=== PATIENT | male | born 1980 | race Caucasian/White ===

== ENCOUNTER 2017-08-17 02:51 | Inpatient (IN) | payer MEDICAID ==
--- NOTE | 2017-08-17 03:31 | ED PDOC ---
HPI: Psych/Substance Abuse Time Seen by Provider: 08/17/17 03:05 Chief Complaint (Nursing): Psychiatric Evaluation Chief Complaint (Provider): crisis evaluation History Per: Patient Additional Complaint(s): 36 y/o male presents stating he was sent here by Dr. Diaz. Patient with flat affect. Denies suicidal/homicidal ideations, acute physical complaints. Of note, patient provided prescription with Dr. Diaz's hand writing stating to have patient evaluated for possible inpatient admission for diagnosis of paranoid schizophrenia. Past Medical History Reviewed: Historical Data, Nursing Documentation, Vital Signs Vital Signs: Last Vital Signs Temp 98.0 F 08/17/17 02:57 Pulse 96 H 08/17/17 02:57 Resp 18 08/17/17 02:57 BP 166/94 H 08/17/17 02:57 Pulse Ox 99 08/17/17 02:57 - Medical History PMH: No Chronic Diseases - Family History Family History: States: No Known Family Hx - Home Medications Home Medications: Ambulatory Orders Medication Instructions Recorded No Known Home Med 08/17/17 - Allergies Allergies/Adverse Reactions: Allergies Allergy/AdvReac Type Severity Reaction Status Date / Time No Known Allergies Allergy Verified 08/17/17 02:57 Review of Systems ROS Statement: Except As Marked, All Systems Reviewed And Found Negative Physical Exam - Reviewed Nursing Documentation Reviewed: Yes Vital Signs Reviewed: Yes - Physical Exam Appears: Positive for: Well, Non-toxic, No Acute Distress Head Exam: Positive for: ATRAUMATIC, NORMAL INSPECTION, NORMOCEPHALIC Skin: Positive for: Normal Color Eye Exam: Positive for: Normal appearance ENT: Positive for: Normal ENT Inspection Cardiovascular/Chest: Positive for: Regular Rate, Rhythm Respiratory: Positive for: Normal Breath Sounds Gastrointestinal/Abdominal: Positive for: Normal Exam Back: Positive for: Normal Inspection Extremity: Positive for: Normal ROM Neurologic/Psych: Positive for: Alert, Oriented (x3), Mood/Affect (flat/guarded) - Laboratory Results Result Diagrams: 08/17/17 04:20 08/17/17 04:20 - ECG ECG: Positive for: Viewed By Me (reviewed by ED attending) ECG Rhythm: Positive for: Sinus Rhythm O2 Sat by Pulse Oximetry: 99 - Radiology X-Ray Interpretation: No Acute Disease, Fracture - Progress ED Course And Treament: crisis eval Patient evaluated by heat treat worker; to be admitted as per Dr. Bentley labs, ekg, chest xray ordered Medical Decision Making Medical Decision Making: Patient medically stable for psych admission Disposition - Clinical Impression Clinical Impression: Schizophrenia - Patient ED Disposition Is Patient to be Admitted: Yes - Disposition Disposition Time: 05:09 Condition: STABLE Forms: yeppt (Hungarian)
[2017-08-17 04:42] LABS: BASO # 0.1 K/uL (0.0-0.2); BASO % 0.7 % (0.0-2.0); EOS # 0.2 K/uL (0.0-0.7); EOS % 2.7 % (0.0-4.0); HEMOGLOBIN 15.3 g/dL (12.0-18.0); LYMPH % 23.6 % (20.0-40.0); MEAN CELL VOLUME 89.3 fl (80.0-94.0); MEAN CORPUSCULAR HEMOGLOBIN 31.1 pg (27.0-31.0); MEAN CORPUSCULAR HGB CONC 34.9 g/dL (33.0-37.0); MEAN PLATELET VOLUME 8.5 fl (7.2-11.7); MONO # 0.9 K/uL (0.0-0.8); MONO % 10.3 % (0.0-10.0); NEUT # 5.2 K/uL (1.8-7.0); NEUT % 62.7 % (50.0-75.0); RBC 4.91 Mil/uL (4.40-5.90); RED CELL DISTRIBUTION WIDTH 12.8 % (11.5-14.5); WHITE BLOOD COUNT 8.3 K/uL (4.8-10.8)
[2017-08-17 04:45] LABS: SQUAMOUS EPITHIAL < 1 /hpf (0-5); URINE BACTERIA RARE (<OCC); URINE BILIRUBIN NEGATIVE (NEGATIVE); URINE BLOOD NEGATIVE (NEGATIVE); URINE CLARITY SLIGHTY-CLOUDY (Clear); URINE COLOR YELLOW (YELLOW); URINE GLUCOSE (UA) NEG (Normal); URINE LEUKOCYTE ESTERASE NEG Leu/uL (Negative); URINE PROTEIN NEGATIVE (NEGATIVE)
[2017-08-17 04:46] LABS: ALB/GLOB RATIO 1.3 (1.0-2.1); ALBUMIN 4.3 g/dL (3.5-5.0); ALT/SGPT 79 U/L (21-72); AST/SGOT 75 U/L (17-59); BLOOD UREA NITROGEN 13 mg/dl (9-20); CALCIUM 9.4 mg/dL (8.4-10.2); GFR AFRICAN-AMERICAN > 60; GFR NON-AFRICAN AMERICAN > 60
[2017-08-17 05:00] LABS: BARBITURATES, UR NEGATIVE (NEGATIVE); BENZODIAZEPINES, UR NEGATIVE (NEGATIVE); OPIATES, UR NEGATIVE (NEGATIVE); PHENCYCLIDINE, UR NEGATIVE (NEGATIVE)
--- NOTE | 2017-08-17 08:21 | RAD ---
HISTORY: admit COMPARISON: No prior. TECHNIQUE: Chest PA and lateral FINDINGS: LUNGS: No active pulmonary disease. PLEURA: No significant pleural effusion identified. No pneumothorax apparent. CARDIOVASCULAR: Normal. OSSEOUS STRUCTURES: No significant abnormalities. VISUALIZED UPPER ABDOMEN: Normal. OTHER FINDINGS: None. IMPRESSION: No acute cardiopulmonary disease appreciated.
[2017-08-17 08:56] VITALS: O2SAT 100
[2017-08-17] MEDS ORDERED: DiphenhydrAMINE 50 mg/ml Inj IM PRN (09:40)
[2017-08-17] MEDS ORDERED: Alum-Mag Hydrox-Simethicone Susp (30 mL) PO PRN (09:40)
[2017-08-17] MEDS ORDERED: Magnesium Hydroxide Susp 30 ml UD PO PRN (09:40)
[2017-08-17] MEDS ORDERED: Risperidone M tab 1 MG PO STA (10:37)
--- NOTE | 2017-08-17 11:01 | PCM.PSYCH ---
Initial Psychiatric Evaluation - Initial Psychiatric Evaluation Type of Admission: Voluntary Legal Status: Capacity Chief Complaint (in patient's own words): I am here for contact lenses Patient's Reaction to Hospitalization: pt requested help History of Present Illness and Precipitating Events: pt is a 36 ys old male with unclear previous psychiatric history, referred to ER by private psychiatrist Dr Padilla, pt reported he started seeing Dr Zhang about ten years ago, only to chech his general health, pt reported he had multiple hospitalizations at [facility] but would not elaborate on the reason pt unkempt and disheveled, speech under productive, continues to report all he needs is eye care, presenting with thought blocking, internally preoccupied , , poor eye contact appears responding to internal stimuli, no reported changes in sleep or appetite denied suicidal or homicidal ideation, denied command hallucinations . no reported substance use, urine toxicology is negative Current Medications: Active Medications Generic Name Dose Route Start Last Admin Trade Name Freq PRN Reason Stop Dose Admin Acetaminophen 650 mg 08/17/17 09:40 Tylenol 325mg Tab PO Q4 PRN Pain, moderate (4-7) Al Hydrox/Mg Hydrox/Simethicone 30 ml 08/17/17 09:40 Maalox Plus 30 Ml PO Q4 PRN Dyspepsia Diphenhydramine HCl 50 mg 08/17/17 09:40 Benadryl IM Q6 PRN Extrapyramidal S/S Unable PO Diphenhydramine HCl 50 mg 08/17/17 09:40 Benadryl PO Q6 PRN Extrapyramidal Symptoms Haloperidol 5 mg 08/17/17 09:40 Haldol PO Q4 PRN Agitation Haloperidol Lactate 5 mg 08/17/17 09:40 Haldol IM Q4 PRN Agitation, Unable to Take PO Lorazepam 2 mg 08/17/17 09:40 Ativan IM Q4 PRN Anxiety/Agitation,Unable PO Lorazepam 2 mg 08/17/17 09:40 Ativan PO Q4 PRN Anxiety/Agitation Magnesium Hydroxide 30 ml 08/17/17 09:40 Milk Of Magnesia PO HS PRN Constipation Risperidone 1 mg 08/17/17 10:37 Risperdal M-Tab PO 08/17/17 10:38 STAT STA Risperidone 1 mg 08/18/17 09:00 Risperdal M-Tab PO DAILY FERMIN Risperidone 1 mg 08/17/17 22:00 Risperdal M-Tab PO HS FERMIN Trazodone HCl 100 mg 08/17/17 22:00 Desyrel PO HS FERMIN Past Psychiatric History - Past Psychiatric History Explanation of prior treatment: pt reported multiple hospitalizations at [facility] indicated he has not been compliant with any medications recently History of ETOH/Drug Use: pt denied History of Family Illness: pt not giving information Pertinent Medical Hx (Current Medical&Sleep Prob, Allergies): Allergies Allergy/AdvReac Type Severity Reaction Status Date / Time No Known Allergies Allergy Verified 08/17/17 02:57 No Known Home Med 08/17/17 Mental Status Examination - Personal Presentation Personal Presentation: Looks older than stated age Additional comments: unkempt, disheveled, hypervigalant, starring - Affect Affect: Constricted - Motor Activity Motor Activity: Psychomotor Retardation - Reliability in Providing Information Reliability in Providing Information: Poor, due to alteration in thoughts - Speech Speech: Disorganized Additional comments: under productive - Mood Mood: Anxious - Formal Thought Process Formal Thought Process: Paranoia, Loosening of associations Additional comments: pt appears internally preoccupied , with thought blocking, appears responding to internal stimuli, denied command hallucinations - Obsessions/Compulsions Obsessions: No Compulsions: No - Cognitive Functions Orientation: Person Sensorium: Alert Judgement: Imparied, as evidence by: Poor judgement, Imparied, as evidence by: Lack of insight into illness - Strength & Assets Inventory Strength & Assets Inventory: Life experience - Limitations Limitations: Living alone DSM 5 DX - DSM 5 DSM 5 Diagnosis: schizophrenia disorganized type - Recommended/Plan of Treatment Treatment Recommendations and Plan of Treatment: start risperidone 1mg bid and uptitrate gradualy trazodone 100mg qhs group and supportive therapy
--- NOTE | 2017-08-17 13:45 | CARD ---
APPROVED REPORT EKG Measurement Heart [id number] <Conclusion> Normal sinus rhythm Cannot rule out Anterior infarct, age undetermined Check chest lead placement Abnormal ECG
--- NOTE | 2017-08-17 14:19 | PCM.BM ---
Addendum entered and electronically signed by Erika Castillo MSW 08/25/17 11: 10: Treatment Plan Review - Problem Altered Thought Process Time Initiated: 14:17 - Discharge / Continuing Care Discharge to:: Home Behavioral Health Services: Outpatient therapy Health Needs: Medications/Rx (Patient attended tx team this morning to discuss progress on 3NP and tx goals. Pt. evasive and uncooperative when asked for additional collateral regarding outpatient mental health services, financial resources and family/social supports. Pt. continues to respond to questions with one word responses. Pt asked about how frequently he meets with outpatient psychiatrist and medication dosages prescribed prior to d/c and responded with You would have to talk to him and I do not know. Pt. more easily irritable than upon admission, expressing frustration over being asked questions by staff. Pt. withdrawn, isolative and internally preoccupied. Pt. suspicious on approach. Insight into precursors to hospitalization, illness and need for tx is poor. Coping skills/judgment impaired. Pt. continues to refuse to sign consent for family or cheondoism supports but provided verbal consent to contact [facility]. Pt. reports hx of OPS with [facility] (Candi S?). Pt refused recommendation to have referral sent to [facility], stating You keep asking me that. Its not necessary.) Original Note: <Elsy Rock - Last Filed: 08/17/17 14:17> Treatment Plan Problems - Problems identified on initial assessmt Altered Thought Process Date Initiated: 08/17/17 Time Initiated: 14:17 Assessment reference: NA Status: Active Treatment assets and liabiliti Patient Assests: ADL independent, financial stabiity Patient Liabilities: live alone - Milieu Protocol Maintain good personal hygiene: daily Encourage regular showers, every shift Remind patient to perform daily oral care, every shift Assist patient to perform ADL's Conduct patient checks and document Observation sheet: Q15 minutes Maintain personal safety: every shift Educate patient to report safety concerns to staff, every shift Monitor environment for contraband/sharps Medication safety: Monitor for expected outcome, potential side effects: every shift, Assess barriers to learning: every shift, Assess readiness for medication education: every shift Milieu Narrative: start risperidone 1mg bid and uptitrate gradualy trazodone 100mg qhs group and supportive therapy Discharge/Continuing Care - Treatment Team Participation Patient/Family/SO Statement: start risperidone 1mg bid and uptitrate gradualy trazodone 100mg qhs group and supportive therapy <Erika Castillo - Last Filed: 08/18/17 15:55> Treatment assets and liabiliti Patient Assests: adapts well, self-reliant, ADL independent, physically healthy , negotiates basic needs Patient Liabilities: live alone, other (limited insight,unable to provide necessary collateral, ambivilent regarding tx) Family Contact Family involvement: Famliy/SO not involved Family contact: Patient declines to allow family contact at present Family contact comment: Pt. refusing to sign consent for family/friends, responding with certainly not when asked. - Goals for Treatment Patient goals for treatment: Patient currently unable to set goals for tx.Insight into precursors to hospitalization, illness and need for tx remain poor. Patient to continue stabilization on 3NP through medication management and group/supportive therapy. Patient to be encouraged to attend groups regularly to promote self-awareness, reality testing, and improve insight, compliance, coping skills and self-esteem. Patient to be provided with referral for appropriate level of aftercare to reduce risk of future hospitalizations and ensure safety in the community. Discharge/Continuing Care - Education Needs Education Needs: Patient Medication, Patient Coping Skills, Patient Anger Management skills, Patient Community resources, Patient Aftercare Safety Plan - Discharge Discharge Criteria: Tolerates medication w/o severe side effects, Free of Suicidal thoughts, Free of paranoid thoughts, Free of agitation, Normal sleep pattern, Ability to care for self, Reduction of target symptoms Discharge to:: Home, Other (OPS) - Treatment Team Participation Patient/Family/SO Statement: 08/18/17 15:59 Pt attending tx team this morning but was unable to fully engage in discussion regarding precursors to hospitalization, sxs or tx goals. Pt. AOX3 with blunted affect and poor eye contact. Pt. presents as disheveled with poor ADLs. Pt. responding with mostly one word responses. Speech: underproductive. Pt. presents with thought blocking and internal preoccupation. Pt. continues to deny AH/VH but has been observed responding to internal stimuli on 3NP. Insight into precursors to hospitalization, illness and need for tx remain poor. Pt. adamant that he is on 3NP secondary to an eye problem, probably my contact. Coping skills/judgment impaired. Focus is limited. Pt. denies SI/HI and is able to contract for safety. Pt. isolative and withdrawn on 3NP. Pt. suspicious on approach. Pt. discharge focused during tx team on 08/18, ambivalent towards medication management but agreeable to continuing stabilization on 3NP. Pt. refused injectable medications despite encouragement from staff. Discussed with Family/SO: No Was Patient/Family/SO present at Treatment Team Meeting: Yes <Jackie Gonzalez - Last Filed: 08/19/17 13:06> - Diagnosis (1) Psychosis Status: Acute Interventions: pharmacotherapy 08/19/17 13:06
--- NOTE | 2017-08-17 14:55 | CP.PCM.CON ---
History of Present Illness - History of Present Illness History of Present Illness: Reason for Consult: Per hospital protocol HPI: 36 year old male no known past medical history admitted for schizophrenia to the psychiatry unit. Patient has no other complaints, hd stable, no acute distress. ROS: Per HPI, all other systems reviewed and neg PMH: denies PSH: denies FH: denies SH: denies tobacco, ETOH, IVDU NKDA Vitals Reviewed GEN: WDWN, alert, cooperative HEENT: NCAT, PERRL, EOMI HEART: RRR, +S1S2, NO MRG LUNG: CTAB, NO WRR ABD: soft, NT, ND, No HSM, No masses EXT: normal pedal pulses, normal capillary refill NEURO: awake, alert, no focal deficits SKIN: warm, dry PSYCH: normal mood, normal affect LABS Most Recent Lab Values WBC 8.3 K/uL (4.8-10.8) 08/17/17 04:20 RBC 4.91 Mil/uL (4.40-5.90) 08/17/17 04:20 Hgb 15.3 g/dL (12.0-18.0) 08/17/17 04:20 Hct 43.9 % (35.0-51.0) 08/17/17 04:20 MCV 89.3 fl (80.0-94.0) 08/17/17 04:20 MCH 31.1 pg (27.0-31.0) H 08/17/17 04:20 MCHC 34.9 g/dL (33.0-37.0) 08/17/17 04:20 RDW 12.8 % (11.5-14.5) 08/17/17 04:20 Plt Count 235 K/uL (130-400) 08/17/17 04:20 MPV 8.5 fl (7.2-11.7) 08/17/17 04:20 Neut % (Auto) 62.7 % (50.0-75.0) 08/17/17 04:20 Lymph % (Auto) 23.6 % (20.0-40.0) 08/17/17 04:20 Fergus % (Auto) 10.3 % (0.0-10.0) H 08/17/17 04:20 Eos % (Auto) 2.7 % (0.0-4.0) 08/17/17 04:20 Baso % (Auto) 0.7 % (0.0-2.0) 08/17/17 04:20 Neut # (Auto) 5.2 K/uL (1.8-7.0) 08/17/17 04:20 Lymph # (Auto) 2.0 K/uL (1.0-4.3) 08/17/17 04:20 Fergus # (Auto) 0.9 K/uL (0.0-0.8) H 08/17/17 04:20 Eos # (Auto) 0.2 K/uL (0.0-0.7) 08/17/17 04:20 Baso # (Auto) 0.1 K/uL (0.0-0.2) 08/17/17 04:20 Sodium 144 mmol/l (132-148) 08/17/17 04:20 Potassium 3.8 MMOL/L (3.6-5.0) 08/17/17 04:20 Chloride 102 mmol/L (98-107) 08/17/17 04:20 Carbon Dioxide 24 mmol/L (22-30) 08/17/17 04:20 Anion Gap 22 (10-20) H 08/17/17 04:20 BUN 13 mg/dl (9-20) 08/17/17 04:20 Creatinine 0.9 mg/dl (0.8-1.5) 08/17/17 04:20 Est GFR ( Amer) > 60 08/17/17 04:20 Est GFR (Non-Af Amer) > 60 08/17/17 04:20 Random Glucose 126 mg/dL (75-110) H 08/17/17 04:20 Calcium 9.4 mg/dL (8.4-10.2) 08/17/17 04:20 Total Bilirubin 0.4 mg/dl (0.2-1.3) 08/17/17 04:20 AST 75 U/L (17-59) H 08/17/17 04:20 ALT 79 U/L (21-72) H 08/17/17 04:20 Alkaline Phosphatase 72 U/L (38-126) 08/17/17 04:20 Total Protein 7.7 G/DL (6.3-8.2) 08/17/17 04:20 Albumin 4.3 g/dL (3.5-5.0) 08/17/17 04:20 Globulin 3.4 gm/dL (2.2-3.9) 08/17/17 04:20 Albumin/Globulin Ratio 1.3 (1.0-2.1) 08/17/17 04:20 Urine Color Yellow (YELLOW) 08/17/17 04:20 Urine Clarity Slighty-cloudy (Clear) 08/17/17 04:20 Urine pH 5.0 (5.0-8.0) 08/17/17 04:20 Ur Specific Sherwood 1.029 (1.003-1.030) 08/17/17 04:20 Urine Protein Negative mg/dL (NEGATIVE) 08/17/17 04:20 Urine Glucose (UA) Neg mg/dL (Normal) 08/17/17 04:20 Urine Ketones Negative mg/dL (NEGATIVE) 08/17/17 04:20 Urine Blood Negative (NEGATIVE) 08/17/17 04:20 Urine Nitrate Negative (NEGATIVE) 08/17/17 04:20 Urine Bilirubin Negative (NEGATIVE) 08/17/17 04:20 Urine Urobilinogen 2.0 mg/dL (0.2-1.0) 08/17/17 04:20 Ur Leukocyte Esterase Neg Donavan/uL (Negative) 08/17/17 04:20 Urine RBC (Auto) 2 /hpf (0-3) 08/17/17 04:20 Urine Microscopic WBC 2 /hpf (0-5) 08/17/17 04:20 Ur Squamous Epith Cells < 1 /hpf (0-5) 08/17/17 04:20 Urine Bacteria Rare (<OCC) 08/17/17 04:20 Urine Opiates Screen Negative (NEGATIVE) 08/17/17 04:20 Urine Methadone Screen Negative (NEGATIVE) 08/17/17 04:20 Ur Barbiturates Screen Negative (NEGATIVE) 08/17/17 04:20 Ur Phencyclidine Scrn Negative (NEGATIVE) 08/17/17 04:20 Ur Amphetamines Screen Negative (NEGATIVE) 08/17/17 04:20 U Benzodiazepines Scrn Negative (NEGATIVE) 08/17/17 04:20 U Oth Cocaine Metabols Negative (NEGATIVE) 08/17/17 04:20 U Cannabinoids Screen Negative (NEGATIVE) 08/17/17 04:20 Alcohol, Quantitative < 10 mg/dl (0-10) 08/17/17 04:20 ASSESSMENT AND PLAN 36 year old male no known past medical history admitted for schizophrenia to the psychiatry unit. Patient has no other complaints, hd stable, no acute distress. Schizophrenia - management per psychiatry team Past Patient History - Past Social History Smoking Status: Never Smoked - CARDIAC Hx Cardiac Disorders: No Hx Hypertension: No - PULMONARY Hx Tuberculosis: No - NEUROLOGICAL HX Cerebrovascular Accident: No Hx Seizures: No - HEMATOLOGICAL/ONCOLOGICAL Hx Cancer: No Hx Human Immunodeficiency Virus (HIV): No - GENITOURINARY/GYNECOLOGICAL Hx Sexually Transmitted Disorders: No - PSYCHIATRIC Hx Schizophrenia: Yes Hx Substance Use: No - SURGICAL HISTORY Hx Surgeries: No - ANESTHESIA Hx Anesthesia: No Meds Allergies/Adverse Reactions: Allergies Allergy/AdvReac Type Severity Reaction Status Date / Time No Known Allergies Allergy Verified 08/17/17 02:57 - Medications Medications: Current Medications Acetaminophen (Tylenol 325mg Tab) 650 mg PO Q4 PRN PRN Reason: Pain, moderate (4-7) Al Hydrox/Mg Hydrox/Simethicone (Maalox Plus 30 Ml) 30 ml PO Q4 PRN PRN Reason: Dyspepsia Diphenhydramine HCl (Benadryl) 50 mg IM Q6 PRN PRN Reason: Extrapyramidal S/S Unable PO Diphenhydramine HCl (Benadryl) 50 mg PO Q6 PRN PRN Reason: Extrapyramidal Symptoms Haloperidol (Haldol) 5 mg PO Q4 PRN PRN Reason: Agitation Haloperidol Lactate (Haldol) 5 mg IM Q4 PRN PRN Reason: Agitation, Unable to Take PO Lorazepam (Ativan) 2 mg IM Q4 PRN PRN Reason: Anxiety/Agitation,Unable PO Lorazepam (Ativan) 2 mg PO Q4 PRN PRN Reason: Anxiety/Agitation Magnesium Hydroxide (Milk Of Magnesia) 30 ml PO HS PRN PRN Reason: Constipation Risperidone (Risperdal M-Tab) 1 mg PO DAILY FERMIN Risperidone (Risperdal M-Tab) 1 mg PO HS FERMIN Trazodone HCl (Desyrel) 100 mg PO HS FERMIN Results - Vital Signs Recent Vital Signs: Last Vital Signs Temp 97 F L 08/17/17 10:00 Pulse 18 L 08/17/17 10:00 Resp 89 H 08/17/17 10:00 BP 132/72 08/17/17 10:00 Pulse Ox 100 08/17/17 09:07 - Labs Result Diagrams: 08/17/17 04:20 08/17/17 04:20 Labs: Laboratory Results - last 24 hr 08/17/17 08/17/17 08/17/17 04:20 04:20 04:20 WBC 8.3 RBC 4.91 Hgb 15.3 Hct 43.9 MCV 89.3 MCH 31.1 H MCHC 34.9 RDW 12.8 Plt Count 235 MPV 8.5 Neut % (Auto) 62.7 Lymph % (Auto) 23.6 Fergus % (Auto) 10.3 H Eos % (Auto) 2.7 Baso % (Auto) 0.7 Neut # (Auto) 5.2 Lymph # (Auto) 2.0 Fergus # (Auto) 0.9 H Eos # (Auto) 0.2 Baso # (Auto) 0.1 Sodium 144 Potassium 3.8 Chloride 102 Carbon Dioxide 24 Anion Gap 22 H BUN 13 Creatinine 0.9 Est GFR ( Amer) > 60 Est GFR (Non-Af Amer) > 60 Random Glucose 126 H Calcium 9.4 Total Bilirubin 0.4 AST 75 H ALT 79 H Alkaline Phosphatase 72 Total Protein 7.7 Albumin 4.3 Globulin 3.4 Albumin/Globulin Ratio 1.3 Urine Color Urine Clarity Urine pH Ur Specific Sherwood Urine Protein Urine Glucose (UA) Urine Ketones Urine Blood Urine Nitrate Urine Bilirubin Urine Urobilinogen Ur Leukocyte Esterase Urine RBC (Auto) Urine Microscopic WBC Ur Squamous Epith Cells Urine Bacteria Urine Opiates Screen Negative Urine Methadone Screen Negative Ur Barbiturates Screen Negative Ur Phencyclidine Scrn Negative Ur Amphetamines Screen Negative U Benzodiazepines Scrn Negative U Oth Cocaine Metabols Negative U Cannabinoids Screen Negative Alcohol, Quantitative < 10 08/17/17 04:20 WBC RBC Hgb Hct MCV MCH MCHC RDW Plt Count MPV Neut % (Auto) Lymph % (Auto) Fergus % (Auto) Eos % (Auto) Baso % (Auto) Neut # (Auto) Lymph # (Auto) Fergus # (Auto) Eos # (Auto) Baso # (Auto) Sodium Potassium Chloride Carbon Dioxide Anion Gap BUN Creatinine Est GFR ( Amer) Est GFR (Non-Af Amer) Random Glucose Calcium Total Bilirubin AST ALT Alkaline Phosphatase Total Protein Albumin Globulin Albumin/Globulin Ratio Urine Color Yellow Urine Clarity Slighty-cloudy Urine pH 5.0 Ur Specific Sherwood 1.029 Urine Protein Negative Urine Glucose (UA) Neg Urine Ketones Negative Urine Blood Negative Urine Nitrate Negative Urine Bilirubin Negative Urine Urobilinogen 2.0 Ur Leukocyte Esterase Neg Urine RBC (Auto) 2 Urine Microscopic WBC 2 Ur Squamous Epith Cells < 1 Urine Bacteria Rare Urine Opiates Screen Urine Methadone Screen Ur Barbiturates Screen Ur Phencyclidine Scrn Ur Amphetamines Screen U Benzodiazepines Scrn U Oth Cocaine Metabols U Cannabinoids Screen Alcohol, Quantitative
[2017-08-17] MEDS ORDERED: Risperidone M tab 1 MG PO SCH (22:00)
[2017-08-18 08:44] LABS: T4 9.61 ug/dl (5.5-11.0)
[2017-08-18] MEDS ORDERED: Risperidone M tab 1 MG PO SCH (09:00)
[2017-08-18] MEDS: Risperidone M TAB 2 MG PO SCH (10:32)
--- NOTE | 2017-08-18 15:15 | PCM.PYCHPN ---
Psychiatric Progress Note - Psychiatric Progress Note Patient seen today, length of contact: pt evaluated discussed with team chart reviewed Patient Chief Complaint: I want to get my eyes checked and leave Problems Identified/Issues Discussed: pt evaluated with treatment team, continues to be disheveled not attending to personal hygiene, poor eye contact, disorganized speech and thought process, internally preoccupied , responding to internal stimuli, observed talking to self and laughing inappropriately ,requesting to be discharged discussed with pt the need to increase medications and to obtain collateral information from treating psychiatrist, pt agreed pt denied suicidal or homicidal ideation, denied command hallucinations Medical Problems: pt reported multiple hospitalizations at [facility] indicated he has not been compliant with any medications recently DSM 5 Symptoms Update: schizophrenia disorganized Medication Change: Yes (increase risperidone) Medical Record Reviewed: Yes Mental Status Examination - Cognitive Function Orientation: Person Attention: Poor Concentration: Poor Association: Loose Fund of Knowledge: Poor Decription of patient's judgement and insights: poor insight and judgment - Mood Mood: Anxious - Affect Affect: Constricted - Speech Speech: Soft Additional comments: disorganized - Formal Thought Process Formal Thought Process: Paranoia, Loosening of associations, Flight of ideas, Circumstantial Psychotic Thoughts and Behaviors: paranoid , internally preoccupied, laughing to self inappropriately - Suicidal Ideation Suicidal Ideation: No - Homicidal Ideation Homicidal Ideation: No Goal/Treatment Plan - Goal/Treatment Plan Need for Continued Stay: Discharge may exacerbated symptoms, Severe functional impairment Progress Toward Problem(s) and Goals/Treatment Plan: increase risperidone 2mg daily and 3mg qhs, cogentin 1mg qhs trazodone 100mg qhs group and supportive therapy
[2017-08-18] MEDS: Risperidone M tab 1 MG PO SCH (21:09)
[2017-08-19] MEDS: Risperidone M TAB 2 MG PO SCH (09:25)
--- NOTE | 2017-08-19 13:25 | PCM.PYCHPN ---
Psychiatric Progress Note - Psychiatric Progress Note Patient seen today, length of contact: pt evaluated discussed with team chart reviewed Patient Chief Complaint: I may perhaps need to leave Problems Identified/Issues Discussed: pt evaluated , continues to be isolative , guarded , paranoid , internally preoccupied , observed responding to internal stimuli , laughing inappropriately , refusing to give any information for collateral opinion , neglecting personal hygiene , needs a lot of encouragement to attend groups psychoeducation given in reference to importance of medication compliance pt denied suicidal or homicidal ideation, denied command hallucinations Medical Problems: pt reported multiple hospitalizations at [facility] indicated he has not been compliant with any medications recently DSM 5 Symptoms Update: schizophrenia Medication Change: Yes (increase risperidone) Medical Record Reviewed: Yes Mental Status Examination - Cognitive Function Orientation: Person Attention: Poor Concentration: Poor Association: Loose Fund of Knowledge: Poor Decription of patient's judgement and insights: poor insight and judgment - Mood Mood: Anxious - Affect Affect: Constricted - Speech Speech: Soft - Formal Thought Process Formal Thought Process: Paranoia, Loosening of associations, Flight of ideas, Circumstantial Psychotic Thoughts and Behaviors: paranoid , internally preoccupied, laughing to self inappropriately - Suicidal Ideation Suicidal Ideation: No - Homicidal Ideation Homicidal Ideation: No Goal/Treatment Plan - Goal/Treatment Plan Need for Continued Stay: Discharge may exacerbated symptoms, Severe functional impairment Progress Toward Problem(s) and Goals/Treatment Plan: increase risperidone 3mg daily and 3mg qhs, cogentin 1mg qhs trazodone 100mg qhs group and supportive therapy
[2017-08-19] MEDS: Risperidone M tab 1 MG PO SCH (21:07)
[2017-08-20] MEDS: Risperidone M tab 1 MG PO SCH ×2 (08:46→21:24)
--- NOTE | 2017-08-20 13:03 | PCM.PYCHPN ---
Psychiatric Progress Note - Psychiatric Progress Note Patient seen today, length of contact: pt evaluated discussed with team chart reviewed Patient Chief Complaint: I wonder when can I leave Problems Identified/Issues Discussed: pt evaluated ,less isolative , seen in day room, speech more productive, continues to have thought blocking continues to be internally preoccupied needs encouragement to attend to personal hygiene , concrete thought process , limited insight into illness and need for medications discussed with pt starting risperidone consta to ensure compliance, pt declined , discussed referral to [facility] on discharge no reported side effects of medications denied suicidal or homicidal ideation, denied command hallucinations Medical Problems: pt reported multiple hospitalizations at [facility] indicated he has not been compliant with any medications recently DSM 5 Symptoms Update: schizophrenia disorganized Medication Change: No (increase risperidone) Medical Record Reviewed: Yes Mental Status Examination - Cognitive Function Orientation: Person Attention: Poor Concentration: Poor Association: Loose Fund of Knowledge: Poor Decription of patient's judgement and insights: poor insight and judgment - Mood Mood: Anxious - Affect Affect: Constricted - Speech Speech: Soft - Formal Thought Process Formal Thought Process: Paranoia, Loosening of associations, Flight of ideas, Circumstantial Psychotic Thoughts and Behaviors: paranoid , internally preoccupied, laughing to self inappropriately - Suicidal Ideation Suicidal Ideation: No - Homicidal Ideation Homicidal Ideation: No Goal/Treatment Plan - Goal/Treatment Plan Need for Continued Stay: Discharge may exacerbated symptoms, Severe functional impairment Progress Toward Problem(s) and Goals/Treatment Plan: i risperidone 3mg daily and 3mg qhs, cogentin 1mg qhs trazodone 100mg qhs group and supportive therapy psychoeducation , will attempt to start risperidone consta social services analyst to reffer to [facility] services
[2017-08-21] MEDS: Risperidone M tab 1 MG PO SCH ×2 (08:31→21:16)
--- NOTE | 2017-08-21 14:38 | PCM.PYCHPN ---
Psychiatric Progress Note - Psychiatric Progress Note Patient seen today, length of contact: pt evaluated discussed with team chart reviewed Patient Chief Complaint: I am fine Problems Identified/Issues Discussed: pt evaluated ,less guarded , seen in day room, speech more productive, continues to have thought blocking continues to be internally preoccupied needs encouragement to attend to personal hygiene , concrete thought process , limited insight into illness and need for medications no reported side effects of medications denied suicidal or homicidal ideation, denied command hallucinations Medical Problems: pt reported multiple hospitalizations at [facility] indicated he has not been compliant with any medications recently DSM 5 Symptoms Update: schizophrenia Medication Change: No Medical Record Reviewed: Yes Mental Status Examination - Cognitive Function Orientation: Person Attention: Poor Concentration: Poor Association: Loose Fund of Knowledge: Poor Decription of patient's judgement and insights: poor insight and judgment - Mood Mood: Anxious - Affect Affect: Constricted - Speech Speech: Soft - Formal Thought Process Formal Thought Process: Paranoia, Loosening of associations, Flight of ideas, Circumstantial Psychotic Thoughts and Behaviors: paranoid , internally preoccupied, laughing to self inappropriately - Suicidal Ideation Suicidal Ideation: No - Homicidal Ideation Homicidal Ideation: No Goal/Treatment Plan - Goal/Treatment Plan Need for Continued Stay: Discharge may exacerbated symptoms, Severe functional impairment Progress Toward Problem(s) and Goals/Treatment Plan: risperidone 3mg daily and 3mg qhs, cogentin 1mg qhs trazodone 100mg qhs group and supportive therapy psychoeducation , will attempt to start risperidone consta social human services assistants to reffer to [facility] services
[2017-08-22] MEDS: Risperidone M tab 1 MG PO SCH ×2 (10:50→21:19)
--- NOTE | 2017-08-22 13:38 | PCM.PYCHPN ---
Psychiatric Progress Note - Psychiatric Progress Note Patient seen today, length of contact: pt evaluated discussed with team chart reviewed Patient Chief Complaint: I need to be released Problems Identified/Issues Discussed: pt evaluated ,lseen inday room, more visible on the unit, pt however presenting with irritable mood and affect , requesting to be discharged, limited insight into illness, continues to refuse bein started on risperidone consta , will start depakote for mood stabilization no reported side effects of medications denied suicidal or homicidal ideation, denied command hallucinations Medical Problems: pt reported multiple hospital[facility] indicated he has not been compliant with any medications recently DSM 5 Symptoms Update: schizophrenia Medication Change: Yes (start depakote 500mg bid) Medical Record Reviewed: Yes Mental Status Examination - Cognitive Function Orientation: Person Attention: Poor Concentration: Poor Association: Loose Fund of Knowledge: Poor Decription of patient's judgement and insights: poor insight and judgment - Mood Mood: Anxious - Affect Affect: Constricted - Speech Speech: Soft - Formal Thought Process Formal Thought Process: Paranoia, Loosening of associations, Flight of ideas, Circumstantial Psychotic Thoughts and Behaviors: paranoid , internally preoccupied, laughing to self inappropriately - Suicidal Ideation Suicidal Ideation: No - Homicidal Ideation Homicidal Ideation: No Goal/Treatment Plan - Goal/Treatment Plan Need for Continued Stay: Discharge may exacerbated symptoms, Severe functional impairment Progress Toward Problem(s) and Goals/Treatment Plan: risperidone 3mg daily and 3mg qhs, cogentin 1mg qhs trazodone 100mg qhs , depakote 500mg bid group and supportive therapy psychoeducation , will attempt to start risperidone consta social science research assistant to reffer to [facility] services Estimated Date of D/C: 08/26/17
[2017-08-22] MEDS: Divalproex 500 mg DR(BID formulation) PO SCH (17:39)
[2017-08-23] MEDS: Divalproex 500 mg DR(BID formulation) PO SCH ×2 (08:57→16:04)
[2017-08-23] MEDS: Risperidone M tab 1 MG PO SCH ×2 (08:58→21:11)
--- NOTE | 2017-08-23 12:38 | PCM.PYCHPN ---
Psychiatric Progress Note - Psychiatric Progress Note Patient seen today, length of contact: pt evaluated discussed with team chart reviewed Patient Chief Complaint: I am fine Problems Identified/Issues Discussed: pt evaluated ,appears less internally preoccupied, continues to need encouragment to attend to personal hygiene, minimal interaction with staff and other patients, presenting with irritable mood and affect, depakote started yesterday , psychoeduction provided in referenc to compliance with medications and treatment denied suicidal or homicidal ideation, denied command hallucinations Medical Problems: pt reported [facility] indicated he has not been compliant with any medications recently DSM 5 Symptoms Update: schizophrenia Medication Change: No Medical Record Reviewed: Yes Mental Status Examination - Cognitive Function Orientation: Person Attention: Poor Concentration: Poor Association: Loose Fund of Knowledge: Poor Decription of patient's judgement and insights: poor insight and judgment - Mood Mood: Anxious - Affect Affect: Constricted - Speech Speech: Loud - Formal Thought Process Formal Thought Process: Paranoia, Loosening of associations, Flight of ideas, Circumstantial Psychotic Thoughts and Behaviors: paranoid , internally preoccupied, laughing to self inappropriately - Suicidal Ideation Suicidal Ideation: No - Homicidal Ideation Homicidal Ideation: No Goal/Treatment Plan - Goal/Treatment Plan Need for Continued Stay: Discharge may exacerbated symptoms, Severe functional impairment Progress Toward Problem(s) and Goals/Treatment Plan: risperidone 3mg daily and 3mg qhs, cogentin 1mg qhs trazodone 100mg qhs , depakote 500mg bid group and supportive therapy psychoeducation , will attempt to start risperidone [employer] social worker to reffer to [facility] services Estimated Date of D/C: 08/26/17
[2017-08-24] MEDS: Risperidone M tab 1 MG PO SCH ×2 (08:39→21:20)
[2017-08-24] MEDS: Divalproex 500 mg DR(BID formulation) PO SCH ×2 (08:39→21:21)
--- NOTE | 2017-08-24 14:13 | PCM.PYCHPN ---
Psychiatric Progress Note - Psychiatric Progress Note Patient seen today, length of contact: pt evaluated discussed with team chart reviewed Patient Chief Complaint: I do not want ICMS Problems Identified/Issues Discussed: pt evaluated, seen in his room continues to be irritable with limited insight into his illness, pt more interactive with undersigned and with staff, appears to be less internally preoccupied denied any command hallucinations, observed to be more attending to his personal hygiene . limited insight into illness refusing ICMS help, denied suicidal or homicidal ideation, Medical Problems: pt reported multiple hospitalizations at [facility] indicated he has not been compliant with any medications recently DSM 5 Symptoms Update: schizophrenia Medication Change: No Medical Record Reviewed: Yes Mental Status Examination - Cognitive Function Orientation: Person Attention: Poor Concentration: Poor Association: Loose Fund of Knowledge: Poor Decription of patient's judgement and insights: poor insight and judgment - Mood Mood: Anxious - Affect Affect: Constricted - Speech Speech: Loud - Formal Thought Process Formal Thought Process: Paranoia, Loosening of associations, Flight of ideas, Circumstantial Psychotic Thoughts and Behaviors: paranoid , internally preoccupied, laughing to self inappropriately - Suicidal Ideation Suicidal Ideation: No - Homicidal Ideation Homicidal Ideation: No Goal/Treatment Plan - Goal/Treatment Plan Need for Continued Stay: Discharge may exacerbated symptoms, Severe functional impairment Progress Toward Problem(s) and Goals/Treatment Plan: risperidone 3mg daily and 3mg qhs, cogentin 1mg qhs trazodone 100mg qhs , depakote 500mg bid , follow up on depakote level tomorrow group and supportive therapy psychoeducation , will attempt to start risperidone [facility] medical social worker to reffer to ICMS services Estimated Date of D/C: 08/26/17
[2017-08-25] MEDS: Divalproex 500 mg DR(BID formulation) PO SCH (09:40)
[2017-08-25] MEDS: Risperidone M tab 1 MG PO SCH ×2 (09:45→21:11)
--- NOTE | 2017-08-25 15:06 | PCM.PYCHPN ---
Psychiatric Progress Note - Psychiatric Progress Note Patient seen today, length of contact: pt evaluated discussed with team chart reviewed Patient Chief Complaint: I have a therapist you can talk to her Problems Identified/Issues Discussed: pt evaluated with treatment team, continues to be guarded,with information , presenting with irritable mood and affect, declined having ICMS worker, also declined referral to [facility], irritable when asked questions, denied ay current command hallucinations denied suicidal or homicidal ideation Medical Problems: pt reported multiple hospitalizations at [facility] indicated he has not been compliant with any medications recently DSM 5 Symptoms Update: schizophrenia Medication Change: Yes (increase depakote) Medical Record Reviewed: Yes Mental Status Examination - Cognitive Function Orientation: Person Attention: WNL Concentration: Poor Association: Loose Fund of Knowledge: Poor Decription of patient's judgement and insights: poor insight and judgment - Mood Mood: Anxious - Affect Affect: Constricted - Speech Speech: Loud - Formal Thought Process Formal Thought Process: Paranoia, Circumstantial Psychotic Thoughts and Behaviors: paranoid , internally preoccupied, laughing to self inappropriately - Suicidal Ideation Suicidal Ideation: No - Homicidal Ideation Homicidal Ideation: No Goal/Treatment Plan - Goal/Treatment Plan Need for Continued Stay: Discharge may exacerbated symptoms, Severe functional impairment Progress Toward Problem(s) and Goals/Treatment Plan: risperidone 3mg daily and 3mg qhs, cogentin 1mg qhs trazodone 100mg qhs , depakote 500mg daily and 750mg qhs, level 50.9 group and supportive therapy psychoeducation , will attempt to start risperidone consta Estimated Date of D/C: 08/26/17
[2017-08-25] MEDS: Divalproex 250 mg DR(BID formulation) PO SCH (21:11)
[2017-08-26] MEDS: Divalproex 500 mg DR(BID formulation) PO SCH (09:17)
[2017-08-26] MEDS: Risperidone M tab 1 MG PO SCH ×2 (09:17→21:20)
--- NOTE | 2017-08-26 15:51 | PCM.PYCHPN ---
Psychiatric Progress Note - Psychiatric Progress Note Patient seen today, length of contact: pt evaluated discussed with team chart reviewed Patient Chief Complaint: I will follow up with Dr Villegas Problems Identified/Issues Discussed: pt evaluated , guarded, poor eye contact presenting with irritable mood and affect, requesting discharge and declining referral to partial program or to ICMS, dicussed INCREASE IN DEPAKOTE AND THE NEED TO CHECK ON DEPAKOTE LEVEL , continues to be internally preoccupied with limited insight into illness , denied ay current command hallucinations denied suicidal or homicidal ideation Medical Problems: pt reported multiple hospitalizations at [facility] indicated he has not been compliant with any medications recently Medication Change: No Medical Record Reviewed: Yes Mental Status Examination - Cognitive Function Orientation: Person Attention: WNL Concentration: Poor Association: Loose Fund of Knowledge: Poor Decription of patient's judgement and insights: poor insight and judgment - Mood Mood: Anxious - Affect Affect: Constricted - Speech Speech: Loud - Formal Thought Process Formal Thought Process: Paranoia, Circumstantial Psychotic Thoughts and Behaviors: paranoid , internally preoccupied, laughing to self inappropriately - Suicidal Ideation Suicidal Ideation: No - Homicidal Ideation Homicidal Ideation: No Goal/Treatment Plan - Goal/Treatment Plan Need for Continued Stay: Discharge may exacerbated symptoms, Severe functional impairment Progress Toward Problem(s) and Goals/Treatment Plan: risperidone 3mg daily and 3mg qhs, cogentin 1mg qhs trazodone 100mg qhs , depakote 500mg daily and 750mg qhs, follow up on level on wednesday group and supportive therapy psychoeducation , will attempt to start risperidone consta Estimated Date of D/C: 08/03/17
[2017-08-26] MEDS: Divalproex 250 mg DR(BID formulation) PO SCH (21:21)
[2017-08-27] MEDS: Divalproex 500 mg DR(BID formulation) PO SCH (09:07)
[2017-08-27] MEDS: Risperidone M tab 1 MG PO SCH ×2 (09:09→21:16)
--- NOTE | 2017-08-27 14:35 | PCM.PYCHPN ---
Psychiatric Progress Note - Psychiatric Progress Note Patient seen today, length of contact: pt evaluated discussed with team chart reviewed Patient Chief Complaint: I do not need any help outside Problems Identified/Issues Discussed: pt evaluated , calmer, less disorganized , less internally preoccupied, more visible on the unit , attending some groups, pt however continues to refuse aftercare , refusing to be on depot medication for compliance and refusing ICMS services, will follow up on depakote level on 08/30 ,pt denied any current command hallucinations denied suicidal or homicidal ideation Medical Problems: pt reported multiple hospitalizations at [facility] indicated he has not been compliant with any medications recently DSM 5 Symptoms Update: schizophrenia Medication Change: No Medical Record Reviewed: Yes Mental Status Examination - Cognitive Function Orientation: Person Attention: WNL Concentration: Poor Association: Loose Fund of Knowledge: Poor Decription of patient's judgement and insights: poor insight and judgment - Mood Mood: Anxious - Affect Affect: Constricted - Speech Speech: Loud - Formal Thought Process Formal Thought Process: Paranoia, Circumstantial Psychotic Thoughts and Behaviors: paranoid , internally preoccupied, laughing to self inappropriately - Suicidal Ideation Suicidal Ideation: No - Homicidal Ideation Homicidal Ideation: No Goal/Treatment Plan - Goal/Treatment Plan Need for Continued Stay: Discharge may exacerbated symptoms, Severe functional impairment Progress Toward Problem(s) and Goals/Treatment Plan: risperidone 3mg daily and 3mg qhs, cogentin 1mg qhs trazodone 100mg qhs , depakote 500mg daily and 750mg qhs, follow up on level on wednesday group and supportive therapy psychoeducation , will attempt to start risperidone consta Estimated Date of D/C: 09/03/17
[2017-08-27] MEDS: Divalproex 250 mg DR(BID formulation) PO SCH (21:16)
--- NOTE | 2017-08-28 09:26 | PCM.PYCHPN ---
Psychiatric Progress Note - Psychiatric Progress Note Patient seen today, length of contact: pt evaluated discussed with team chart reviewed Patient Chief Complaint: pt has been less anxious and less paranoid and less disorganized but still with poor insight regarding psychotic illness and need for continued outpt treatment and still refusing aftercare Medication Change: No Medical Record Reviewed: Yes Mental Status Examination - Cognitive Function Orientation: Person Attention: WNL Concentration: Poor Association: Loose Fund of Knowledge: Poor - Mood Mood: Anxious - Affect Affect: Constricted - Speech Speech: Loud - Formal Thought Process Formal Thought Process: Paranoia, Circumstantial - Suicidal Ideation Suicidal Ideation: No - Homicidal Ideation Homicidal Ideation: No Goal/Treatment Plan - Goal/Treatment Plan Need for Continued Stay: Discharge may exacerbated symptoms, Severe functional impairment, Other Progress Toward Problem(s) and Goals/Treatment Plan: will continue to titrate meds as needed and encourage trial of Depot I /M meds . d/c pllans as per dr pedraza Estimated Date of D/C: 09/03/17
[2017-08-28] MEDS: Divalproex 500 mg DR(BID formulation) PO SCH (09:45)
[2017-08-28] MEDS: Risperidone M tab 1 MG PO SCH ×2 (09:49→21:05)
[2017-08-28] MEDS: Divalproex 250 mg DR(BID formulation) PO SCH (21:05)
[2017-08-29] MEDS: Divalproex 500 mg DR(BID formulation) PO SCH (09:18)
[2017-08-29] MEDS: Risperidone M tab 1 MG PO SCH ×2 (09:18→21:11)
[2017-08-29] MEDS: Divalproex 250 mg DR(BID formulation) PO SCH (21:11)
[2017-08-30] MEDS: Divalproex 500 mg DR(BID formulation) PO SCH (09:03)
[2017-08-30] MEDS: Risperidone M tab 1 MG PO SCH ×2 (09:04→21:07)
--- NOTE | 2017-08-30 16:08 | PCM.PYCHPN ---
Psychiatric Progress Note - Psychiatric Progress Note Patient seen today, length of contact: pt evaluated discussed with team chart reviewed Patient Chief Complaint: I feel better Problems Identified/Issues Discussed: pt evaluated , c, more attentive to his personal hygiene ,attending more groups , more interactive with staff, not observed to be internally preoccupied, no reported side effects of medications, depakote level noted 60, pt les irritable pt denied command hallucinations denied suicidal or homicidal ideation Medical Problems: pt reported multiple hospitalizations at [facility] indicated he has not been compliant with any medications recently DSM 5 Symptoms Update: schizophrenia Medication Change: No Medical Record Reviewed: Yes Mental Status Examination - Cognitive Function Orientation: Person Attention: WNL Concentration: Poor Association: WNL Fund of Knowledge: Poor Decription of patient's judgement and insights: poor insight and judgment - Mood Mood: Anxious - Affect Affect: Constricted - Speech Speech: Loud - Formal Thought Process Formal Thought Process: Paranoia, Circumstantial Psychotic Thoughts and Behaviors: concrete thought process, continues to be guarded - Suicidal Ideation Suicidal Ideation: No - Homicidal Ideation Homicidal Ideation: No Goal/Treatment Plan - Goal/Treatment Plan Need for Continued Stay: Discharge may exacerbated symptoms, Severe functional impairment, Other Progress Toward Problem(s) and Goals/Treatment Plan: risperidone 3mg daily and 3mg qhs, cogentin 1mg qhs trazodone 100mg qhs , depakote 500mg daily and 750mg qhs, depakote level 60 group and supportive therapy psychoeducation , will attempt to start risperidone consta Estimated Date of D/C: 09/03/17
[2017-08-30] MEDS: Divalproex 250 mg DR(BID formulation) PO SCH (21:07)
[2017-08-31] MEDS: Divalproex 500 mg DR(BID formulation) PO SCH (08:58)
[2017-08-31] MEDS: Risperidone M tab 1 MG PO SCH ×2 (08:59→21:07)
[2017-08-31] MEDS ORDERED: risperiDONE Consta 37.5 mg/2 ml Syr IM ONE (12:07)
--- NOTE | 2017-08-31 13:44 | PCM.PYCHPN ---
Psychiatric Progress Note - Psychiatric Progress Note Patient seen today, length of contact: pt evaluated discussed with team chart reviewed Patient Chief Complaint: I will try the injection if it keeps me out of the hospital Problems Identified/Issues Discussed: pt evaluated , , more interactive with the undersigned and staff members, readvised pt about starting risperidone consta to ensure compliance and avoid re hospitalization, pt agreed , will be given 1st dose of risperidone consta 37.5mg Im TODAY, will follow up with EKG tomorrow pt also agreed to be linked to [facility], referral process to be started by web content & social media manager, no reported side effects of medications , pt denied any current suicidal or homicidal ideation Medical Problems: pt reported multiple hospitalizations at [facility] indicated he has not been compliant with any medications recently DSM 5 Symptoms Update: schizophrenia Medication Change: Yes (start risperidone consta 37.5mg IM ) Medical Record Reviewed: Yes Mental Status Examination - Cognitive Function Orientation: Person, Place, Situation Attention: WNL Concentration: Poor Association: WNL Fund of Knowledge: Poor Decription of patient's judgement and insights: poor insight and judgment - Mood Mood: Anxious - Affect Affect: Constricted - Speech Speech: Loud - Formal Thought Process Formal Thought Process: Paranoia, Circumstantial Psychotic Thoughts and Behaviors: concrete thought process, continues to be guarded - Suicidal Ideation Suicidal Ideation: No - Homicidal Ideation Homicidal Ideation: No Goal/Treatment Plan - Goal/Treatment Plan Need for Continued Stay: Discharge may exacerbated symptoms, Severe functional impairment, Other Progress Toward Problem(s) and Goals/Treatment Plan: risperidone 3mg daily and 3mg qhs, cogentin 1mg qhs , risperidone consta IM 37.5mg 1st dose today trazodone 100mg qhs , depakote 500mg daily and 750mg qhs, depakote level 60 group and supportive therapy psychoeducation , referral to [facility] by web content & social media manager Estimated Date of D/C: 09/03/17
[2017-08-31] MEDS: Divalproex 250 mg DR(BID formulation) PO SCH (21:06)
[2017-09-01] MEDS: Divalproex 500 mg DR(BID formulation) PO SCH (09:23)
[2017-09-01] MEDS: Risperidone M tab 1 MG PO SCH ×2 (09:25→21:28)
--- NOTE | 2017-09-01 15:29 | PCM.PYCHPN ---
Psychiatric Progress Note - Psychiatric Progress Note Patient seen today, length of contact: pt evaluated discussed with team chart reviewed Patient Chief Complaint: I will continue on the injection Problems Identified/Issues Discussed: pt evaluated with treatment team , more interactive with the undersigned and staff members, pt was given rispeeridone consta no reported side effects, advised to continue with IM medication to ensure compliance , pt requested after care with private psychiatrist, presenting witha more clear thought process and no perceptual disturbances elicited no reported side effects of medications , pt denied any current suicidal or homicidal ideation Medical Problems: pt reported multiple hospitalizations at [facility] indicated he has not been compliant with any medications recently DSM 5 Symptoms Update: schizophrenia Medication Change: No Medical Record Reviewed: Yes Mental Status Examination - Cognitive Function Orientation: Person, Place, Situation Attention: WNL Concentration: Poor Association: WNL Fund of Knowledge: Poor Decription of patient's judgement and insights: poor insight and judgment - Mood Mood: Anxious - Affect Affect: Constricted - Speech Speech: Loud - Formal Thought Process Formal Thought Process: Paranoia, Circumstantial Psychotic Thoughts and Behaviors: concrete thought process, continues to be guarded - Suicidal Ideation Suicidal Ideation: No - Homicidal Ideation Homicidal Ideation: No Goal/Treatment Plan - Goal/Treatment Plan Need for Continued Stay: Discharge may exacerbated symptoms, Severe functional impairment, Other Progress Toward Problem(s) and Goals/Treatment Plan: risperidone 3mg daily and 3mg qhs, cogentin 1mg qhs , risperidone consta IM 37.5mg 1st dose 09/01/17 trazodone 100mg qhs , depakote 500mg daily and 750mg qhs, depakote level 60 group and supportive therapy psychoeducation , for medication compliance Estimated Date of D/C: 09/03/17
[2017-09-01 17:45] VITALS: RESP 18
[2017-09-01] MEDS: Divalproex 250 mg DR(BID formulation) PO SCH (21:27)
[2017-09-02 08:54] VITALS: BP 125/85; PULSE 70; TEMP 96.6
[2017-09-02] MEDS: Risperidone M tab 1 MG PO SCH (09:25)
[2017-09-02] MEDS: Divalproex 500 mg DR(BID formulation) PO SCH (09:28)
--- NOTE | 2017-09-02 12:00 | PCM.PYCHDC ---
Mental Status Examination - Mental Status Examination Orientation: Person, Place, Situation Memory: Intact Mood: Neutral Affect: Constricted Speech: Appropriate Attention: WNL Concentration: Poor Association: WNL Fund of Knowledge: Poor Formal Thought Process: Perservation Description of patient's judgement and insight: poor insight and judgment Psychotic Thoughts and Behaviors: concrete thought process, denied any current perceptual disturbances, non elicited Suicidal Ideation: No Current Homicidal Ideation?: No Discharge Summary - Discharge Note Reason for Hospitalization: pt is a 36 ys old male with unclear previous psychiatric history, referred to ER by private psychiatrist Dr Padilla, pt reported he started seeing Dr Zhang about ten years ago, only to chech his general health, pt reported he had multiple hospitalizations at [facility] but would not elaborate on the reason pt unkempt and disheveled, speech under productive, continues to report all he needs is eye care, presenting with thought blocking, internally preoccupied , , poor eye contact appears responding to internal stimuli, no reported changes in sleep or appetite denied suicidal or homicidal ideation, denied command hallucinations . no reported substance use, urine toxicology is negative Consultations:: List each consultation separately and include: 1. Reason for request. 2. Findings. 3. Follow-up Summary of Hospital Course include:: 1. Description of specific treatment plan utilized for patients during their course of treatmen. 2. Summarize the time- course for resolution of acute symptoms and/or regressed behaviors. 3. Describe issues identified and worked on during hospitalization. 4. Describe medication utilized. 5. Describe medical problems identified and treated. 6. Reassessment of suicide risk Summary of Hospital Course: pt on admission , was psychotic, disheveled disorganized, internally preoccupied , responding to internal stimuli, irritable and angry pt was started on risperidone, it was uptitrated to 3mg bid, also on depakote it was increased to 500mg daily and 750 mg qhs, pt was encouraged to attend groups, psychoeducation provided and pt agreed to be on risperidone consta, to ensure compliance 1st dose was on 08/31/17, next dose due on 09/14/14 depakote level 60.9,no reported side effects of medications, pt on discharge mental status was stable denied suicidal or homicidal ideation denied perceptual disturbances follow up arranged by social sevices with Dr Padilla - Diagnosis (1) Psychosis Status: Acute - Final Diagnosis (DSM 5) Condition upon Discharge: STABLE DSM 5: schizophrenia disorganized type Disposition: HOME/ ROUTINE Follow-up Treatment Plan: Dr Padilla Prescriptions/Medication Reconciliation: Benztropine [Cogentin] 0.5 mg PO HS 30 Days #30 tab Divalproex [Depakote DR(*BID*)] 750 mg PO HS 30 Days #90 tcp Divalproex [Depakote DR(*BID*)] 500 mg PO DAILY 30 Days #30 tcp Risperidone [Risperdal M-TAB] 3 mg PO HS 30 Days #30 odt risperiDONE [RisperDAL Tab] 3 mg PO DAILY 30 Days #30 tab traZODone [Desyrel] 100 mg PO HS 30 Days #30 tab - Antipsychotic Medications Pt discharged on 2 or more routine antipsychotic medications: No
== END 2017-09-02 11:27 | disposition home or self-care (01) | DRG 430 ==
LOC: H.ER 02:51 → H.ERHOLD 05:08 → H.PSYCH 09:22
PROVIDERS: ADMIT Psychiatry & Neurology Psychiatry; ATTEND Psychiatry & Neurology Psychiatry
PROC: GZHZZZZ Group Psychotherapy (ICD-10-PCS; principal; 2017-08-17)
PROC: GZ56ZZZ Individual Psychotherapy, Supportive (ICD-10-PCS; 2017-08-17)
DX: F20.1 Disorganized schizophrenia (principal); Z91.14 Patient's other noncompliance with medication regimen

== ENCOUNTER 2018-04-01 16:01 | Emergency (ER) | payer OTHER, MEDICAID ==
[2018-04-01 16:01] VITALS: BMI 31.3
[2018-04-01 16:38] VITALS: TEMP 98.6
--- NOTE | 2018-04-01 19:44 | ED PDOC ---
HPI: Skin/Bite Injury Time Seen by Provider: 04/01/18 18:34 Chief Complaint (Nursing): Abnormal Skin Integrity Chief Complaint (Provider): Abnormal Skin Integrity History Per: Patient History/Exam Limitations: no limitations Onset/Duration Of Symptoms: Days (2x weeks, worsening for 24x hours) Current Symptoms Are (Timing): Still Present Quality Of Symptoms: Itching Additional Complaint(s): 37 year old male with a past medical history of schizophrenia presents to the ED for an evaluation of diffuse skin irritation of his back and upper extremities ongoing for 2x weeks, worsening in the past 24x hours. Patient reports itching and burning. Patient reports that he is currently staying at a homeless care home, and denies having any new exposure to skin products or detergents. 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 Otherwise: (-) other complaints (-) SOB/cough (-) facial swelling (-) throat pain (-) dysphagia. PMD: None Past Medical History Reviewed: Historical Data, Nursing Documentation, Vital Signs Vital Signs: Last Vital Signs Temp 98.6 F 04/01/18 16:36 Pulse 122 H 04/01/18 16:36 Resp 20 04/01/18 16:36 BP 170/90 H 04/01/18 16:36 Pulse Ox 99 04/01/18 16:36 - Medical History PMH: HTN (?), Schizophrenia - Surgical History Surgical History: No Surg Hx - Family History Family History: States: No Known Family Hx - Living Arrangements Living Arrangements: Other (homeless) - Social History Current smoker - smoking cessation education provided: No Alcohol: None Drugs: Denies - Home Medications Home Medications: Ambulatory Orders Medication Instructions Recorded RX: Benztropine [Cogentin] 1 mg PO BID tab 09/25/17 RX: Divalproex [Depakote DR] 500 mg PO BID tcp 09/25/17 RX: hydrOXYzine HCl [Atarax] 25 mg PO Q6 PRN tab 09/25/17 RX: traZODone [Desyrel] 100 mg PO HS tab 09/25/17 RX: risperiDONE [RisperDAL Tab] 4 mg PO QPM #30 tab 02/21/18 Calamine/Zinc Oxide [Calamine 1 applic TOP BID PRN #1 bottle 04/01/18 Lotion] DiphenhydrAMINE [Benadryl] 50 mg PO Q6 PRN #30 cap 04/01/18 Famotidine [Pepcid] 40 mg PO DAILY #5 tablet 04/01/18 Methylprednisolone [Medrol Dose 4 mg PO DAILY #21 mg 04/01/18 Pack (21 tabs)] - Allergies Allergies/Adverse Reactions: Allergies Allergy/AdvReac Type Severity Reaction Status Date / Time No Known Allergies Allergy Verified 04/01/18 16:36 Review of Systems ROS Statement: Except As Marked, All Systems Reviewed And Found Negative Skin: Positive for: Rash Physical Exam - Reviewed Nursing Documentation Reviewed: Yes Vital Signs Reviewed: Yes - Physical Exam Comments: GENERAL APPEARANCE: Patient is awake, alert, oriented x 3, in no acute distress. Poor hygiene. SKIN: erythematous micropapules to torso and bilateral upper extremities. (+) scabbing. (+)excoriations. Otherwise (-) drainage, (-) crusting of lesions is present (-) evidence of cellulitis. HENT: (-) conjunctival injection, (-) chemosis. Oropharynx: clear (-) tongue or lip swelling, (-) tonsillar exudates, (-) erythema. Airway: patent (-) stridor, (-) hoarseness. Mucous membranes moist. Nares: Patent (-) rhinorrhea. NECK: Supple, FROM v(-) lymphadenopathy, (-) tenderness. CARDIOVASCULAR: Normal rate and rhythm. CHEST: (-) rales, (-) wheezing, (-) dyspnea, (-) stridor. Breath sounds equal bilaterally. ABDOMEN: Soft. (-) tenderness, (-) distention NEURO: Mental status: Patient is alert, oriented, and with normal strength and tone. Gait: steady. Speech: clear. (-) facial asymmetry - ECG O2 Sat by Pulse Oximetry: 99 (RA) Pulse Ox Interpretation: Normal Medical Decision Making Medical Decision Makin:35 Clinical impression: 37 year old male with contact dermatitis/rash, pruritis. Initial plan: * benadryl 50 mg PO once * pepcid 40 mg PO * solu-medrol 125 mg IM once * reevaluation 2030 Repeat BP: 136/97 Repeat HR: 96 On re-evaluation, patient reports improvement of symptoms. On exam, patient remains AAOx3, in no acute distress. Vitals stable. Lab/Diagnostic results d/w the patient in great detail. Diagnosis of contact dermatitis, rash, pruritis d/w the patient. Based on history, exam and diagnostic results, plan will be for outpatient follow up with clinic. Patient instructed to follow-up with pmd / referral provided / the clinic in 1- 2 days without fail. Advised to take medication as prescribed. Return to the emergency room at any time for any new or worsening symptoms. Patient states he fully agrees with and understands discharge instructions. States that he agrees with the plan and disposition. Verbalized and repeated discharge instructions and plan. I have given the patient opportunity to ask any additional questions. -- Scribe Attestation: Documented byMaryan Haley, acting as a scribe for Maryan Lance Provider Scribe Attestation: All medical record entries made by the Scribe were at my direction and personally dictated by me. I have reviewed the chart and agree that the record accurately reflects my personal performance of the history, physical exam, medical decision making, and the department course for this patient. I have also personally directed, reviewed, and agree with the discharge instructions and disposition. Disposition - Clinical Impression Clinical Impression: Rash, Contact dermatitis, Generalized pruritus - Patient ED Disposition Is Patient to be Admitted: No Counseled Patient/Family Regarding: Studies Performed, Diagnosis, Need For Followup, Rx Given - Disposition Referrals: [facility] [Outside] Disposition: Routine/Home Disposition Time: 20:30 Condition: STABLE Additional Instructions: The emergency medical care you received today was directed at your acute symptoms. If you were prescribed any medication, please fill it and take as directed. It may take several days for your symptoms to resolve. Return to the Emergency Department if your symptoms worsen, do not improve, or if you have any other problems. Please contact your doctor in 2 days for re-evaluation and follow up / or call one of the physicians/clinics you have been referred to that are listed on the Patient Visit Information form that is included in your discharge packet. Bring any paperwork you were given at discharge with you along with any medications you are taking to your follow up visit. Our treatment cannot replace ongoing medical care by a primary care provider (PCP) outside of the emergency department. Prescriptions: Calamine/Zinc Oxide [Calamine Lotion] 1 applic TOP BID PRN #1 bottle PRN Reason: Itching / Pruritus DiphenhydrAMINE [Benadryl] 50 mg PO Q6 PRN #30 cap PRN Reason: Itching / Pruritus Famotidine [Pepcid] 40 mg PO DAILY #5 tablet Methylprednisolone [Medrol Dose Pack (21 tabs)] 4 mg PO DAILY #21 mg Instructions: Contact Dermatitis (DC), Skin Rash Forms: [facility] (Kazakh) Print Language: [place] - POA Present On Arrival: None
[2018-04-01 21:16] VITALS: BP 136/97; PULSE 96; RESP 18
[2018-04-05 00:52] VITALS: O2SAT 99
== END 2018-04-01 21:25 | disposition home or self-care (01) ==
LOC: H.ER 16:01
DX: L25.9 Unspecified contact dermatitis, unspecified cause (principal); R21 Rash and other nonspecific skin eruption; I10 Essential (primary) hypertension; L29.9 Pruritus, unspecified; Z86.59 Personal history of other mental and behavioral disorders
CPT/HCPCS: 96372; 99282; J2930

== ENCOUNTER 2018-04-07 14:38 | Emergency (ER) | payer MEDICAID, OTHER ==
[2018-04-07 14:38] VITALS: BMI 31.3
--- NOTE | 2018-04-07 16:46 | ED PDOC ---
Upper Extremity Pain/Injury Time Seen by Provider: 04/07/18 16:21 Chief Complaint (Nursing): Upper Extremity Problem/Injury Chief Complaint (Provider): Bilateral Arm Rash History Per: Patient History/Exam Limitations: no limitations Onset/Duration Of Symptoms: Days (over two weeks) Current Symptoms Are (Timing): Still Present Additional Complaint(s): 37 year old male with a past medical history of schizophrenia presents to the ED for an evaluation of diffuse skin irritation of his back and upper extremities ongoing for over two weeks. He was last seen by this provider 04/01/18 for the same rash but never filled his prescriptions because that day he had temporary relief of symptoms after treatment in the ED. Patient presents today with the same rash; patient has prescriptions from last visit in hand. Patient reports itching and burning to rash. He notes that he is currently staying at a homeless [facility], but denies having any new exposure to skin products or detergents. 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 Otherwise: (-) other complaints (-) SOB/cough (-) facial swelling (-) throat pain (-) dysphagia. PMD: none provided Past Medical History Reviewed: Historical Data, Nursing Documentation, Vital Signs Vital Signs: Last Vital Signs Temp 98.9 F 04/07/18 15:29 Pulse 110 H 04/07/18 15:29 Resp 16 04/07/18 15:29 BP 174/103 H 04/07/18 15:29 Pulse Ox 100 04/07/18 15:29 - Medical History PMH: HTN (?), Schizophrenia - Surgical History Surgical History: No Surg Hx - Family History Family History: States: Unknown Family Hx - Home Medications Home Medications: Ambulatory Orders Medication Instructions Recorded RX: Benztropine [Cogentin] 1 mg PO BID tab 09/25/17 RX: Divalproex [Depakote DR] 500 mg PO BID tcp 09/25/17 RX: hydrOXYzine HCl [Atarax] 25 mg PO Q6 PRN tab 09/25/17 RX: traZODone [Desyrel] 100 mg PO HS tab 09/25/17 RX: risperiDONE [RisperDAL Tab] 4 mg PO QPM #30 tab 02/21/18 Calamine/Zinc Oxide [Calamine 1 applic TOP BID PRN #1 bottle 04/01/18 Lotion] DiphenhydrAMINE [Benadryl] 50 mg PO Q6 PRN #30 cap 04/01/18 Famotidine [Pepcid] 40 mg PO DAILY #5 tablet 04/01/18 Methylprednisolone [Medrol Dose 4 mg PO DAILY #21 mg 04/01/18 Pack (21 tabs)] Calamine/Zinc Oxide [Calamine 1 applic TOP BID PRN #2 bottle 04/07/18 Lotion] - Allergies Allergies/Adverse Reactions: Allergies Allergy/AdvReac Type Severity Reaction Status Date / Time No Known Allergies Allergy Verified 04/01/18 16:36 Review of Systems ROS Statement: Except As Marked, All Systems Reviewed And Found Negative ENT: Negative for: Throat Pain, Other (dysphagia; facial swelling) Respiratory: Negative for: Cough, Shortness of Breath Skin: Positive for: Rash (diffuse to upper extremities) Physical Exam - Reviewed Nursing Documentation Reviewed: Yes Vital Signs Reviewed: Yes - Physical Exam Comments: GENERAL APPEARANCE: Patient is awake, alert, oriented x 3, in no acute distress. Poor hygiene. SKIN: erythematous micropapules to torso and bilateral upper extremities. (+) scabbing. (+)excoriations. Otherwise (-) drainage, (-) crusting of lesions is present (-) evidence of cellulitis. HENT: (-) conjunctival injection, (-) chemosis. Oropharynx: clear (-) tongue or lip swelling, (-) tonsillar exudates, (-) erythema. Airway: patent (-) stridor, (-) hoarseness. Mucous membranes moist. Nares: Patent (-) rhinorrhea. NECK: Supple, FROM (-) lymphadenopathy, (-) tenderness. CARDIOVASCULAR: Normal rate and rhythm. CHEST: (-) rales, (-) wheezing, (-) dyspnea, (-) stridor. Breath sounds equal bilaterally. Respirations nonlabored. ABDOMEN: Soft. (-) tenderness, (-) distention NEURO: Mental status: Patient is alert, oriented, and with normal strength and tone. Gait: steady. Speech: clear. (-) facial asymmetry - ECG O2 Sat by Pulse Oximetry: 100 (RA) Pulse Ox Interpretation: Normal Medical Decision Making Medical Decision Making: Time: 1640 Clinical impression: 37 year old male with contact dermatitis/rash, pruritis. Initial plan: --Patient urged to fill the initial scripts given at his earliest convenience and informed that the treatment is not going to change from last visit. Compliance to his medications was stressed. Patient agrees with plan and is stable for discharge. Repeat HR: 98 Repeat BP: 140/88 Based on history, exam and diagnostic results, plan will be for outpatient follow up with clinic. Patient instructed to follow-up with pmd / referral provided / the clinic in 1- 2 days without fail. Advised to take medication as prescribed from initial ED visit. Return to the emergency room at any time for any new or worsening symptoms. Patient states he fully agrees with and understands discharge instructions. States that he agrees with the plan and disposition. Verbalized and repeated discharge instructions and plan. I have given the patient opportunity to ask any additional questions. Scribe Attestation: Documented by Anca Looney, acting as a scribe for Maryan Colmenares PA-C. Provider Scribe Attestation: All medical record entries made by the Scribe were at my direction and personally dictated by me. I have reviewed the chart and agree that the record accurately reflects my personal performance of the history, physical exam, medical decision making, and the department course for this patient. I have also personally directed, reviewed, and agree with the discharge instructions and disposition. Disposition - Clinical Impression Clinical Impression: Contact dermatitis, Pruritic dermatitis - Patient ED Disposition Is Patient to be Admitted: No Counseled Patient/Family Regarding: Studies Performed, Diagnosis, Need For Followup, Rx Given - Disposition Referrals: [facility] [Outside] Disposition: Routine/Home Disposition Time: 16:40 Condition: STABLE Additional Instructions: PLEASE FILL PRESCRIPTIONS FROM PRIOR ER VISIT. The emergency medical care you received today was directed at your acute symptoms. If you were prescribed any medication, please fill it and take as directed. It may take several days for your symptoms to resolve. Return to the Emergency Department if your symptoms worsen, do not improve, or if you have any other problems. Please contact your doctor in 2 days for re-evaluation and follow up / or call one of the physicians/clinics you have been referred to that are listed on the Patient Visit Information form that is included in your discharge packet. Bring any paperwork you were given at discharge with you along with any medications you are taking to your follow up visit. Our treatment cannot replace ongoing medical care by a primary care provider (PCP) outside of the emergency department. Prescriptions: Calamine/Zinc Oxide [Calamine Lotion] 1 applic TOP BID PRN #2 bottle PRN Reason: Itching / Pruritus Instructions: Dermatitis, Contact Dermatitis (DC), Skin Rash Forms: [facility] (Nepali) Print Language: CITIZEN OF [place] - POA Present On Arrival: None
[2018-04-07 17:08] VITALS: PULSE 98; RESP 18
[2018-04-07 17:15] VITALS: BP 140/88; TEMP 98.7
[2018-04-09 21:16] VITALS: O2SAT 100
== END 2018-04-07 17:14 | disposition home or self-care (01) ==
LOC: H.ER 14:38
DX: L25.9 Unspecified contact dermatitis, unspecified cause (principal); L30.8 Other specified dermatitis; I10 Essential (primary) hypertension; F20.9 Schizophrenia, unspecified

== ENCOUNTER 2018-04-11 20:09 | Emergency (ER) | payer MEDICAID ==
[2018-04-11 20:09] VITALS: BMI 31.3
[2018-04-11 20:37] VITALS: RESP 18; TEMP 98.4; O2SAT 99
[2018-04-11] MEDS ORDERED: Sodium Chloride 0.9% 1,000 ML IV SCH (21:15)
--- NOTE | 2018-04-11 21:15 | ED PDOC ---
HPI: Headache Time Seen by Provider: 04/11/18 20:54 Chief Complaint (Nursing): Headache Chief Complaint (Provider): Near Syncope History Per: Patient History/Exam Limitations: no limitations (Pt presents to the ED after becoming dizzy earlier today after standing up from a seated position and indicating that he has been having upper extremity muscle aches from time to time for the past one or two weeks. Pt also complains of a new onset of headache in his right temporaral region. Pt denies any cardiac, hypertension, urinary symptoms, NVD, abdominal pain, cough, fever, ill contacts, SOB, PARKER or ear pain; ) Current Symptoms Are (Timing): Better Severity: None Past Medical History Reviewed: Historical Data, Nursing Documentation, Vital Signs Vital Signs: Last Vital Signs Temp 98.4 F 04/11/18 20:34 Pulse 122 H 04/11/18 20:34 Resp 18 04/11/18 20:34 BP Pulse Ox 99 04/11/18 20:34 - Medical History PMH: HTN, Schizophrenia Denies: Diabetes, Hepatitis, HIV, Seizures, Sexually Transmitted Disease - Family History Family History: States: Unknown Family Hx - Immunization History Hx Tetanus Toxoid Vaccination: No Hx Influenza Vaccination: No Hx Pneumococcal Vaccination: No - Home Medications Home Medications: Ambulatory Orders Medication Instructions Recorded Benztropine [Cogentin] 1 mg PO BID tab 09/25/17 Divalproex [Depakote DR] 500 mg PO BID tcp 09/25/17 hydrOXYzine HCl [Atarax] 25 mg PO Q6 PRN tab 09/25/17 traZODone [Desyrel] 100 mg PO HS tab 09/25/17 risperiDONE [RisperDAL Tab] 4 mg PO QPM #30 tab 02/21/18 Calamine/Zinc Oxide [Calamine 1 applic TOP BID PRN #1 bottle 04/01/18 Lotion] DiphenhydrAMINE [Benadryl] 50 mg PO Q6 PRN #30 cap 04/01/18 Famotidine [Pepcid] 40 mg PO DAILY #5 tablet 04/01/18 Methylprednisolone [Medrol Dose 4 mg PO DAILY #21 mg 04/01/18 Pack (21 tabs)] Calamine/Zinc Oxide [Calamine 1 applic TOP BID PRN #2 bottle 04/07/18 Lotion] - Allergies Allergies/Adverse Reactions: Allergies Allergy/AdvReac Type Severity Reaction Status Date / Time No Known Allergies Allergy Verified 04/01/18 16:36 Review of Systems ROS Statement: Except As Marked, All Systems Reviewed And Found Negative Constitutional: Positive for: Weakness Neurological: Positive for: Headache Physical Exam - Reviewed Nursing Documentation Reviewed: Yes Vital Signs Reviewed: Yes - Physical Exam Appears: Positive for: Well, Non-toxic, No Acute Distress. Negative for: Uncomfortable Head Exam: Positive for: ATRAUMATIC, NORMAL INSPECTION Skin: Positive for: Normal Color, Warm, Dry. Negative for: Diaphoresis, Pallor, Rash Eye Exam: Positive for: Normal appearance, EOMI, PERRL. Negative for: Nystagmus, Periorbital swelling, Periorbital tenderness ENT: Positive for: Normal ENT Inspection Neck: Positive for: Normal, Painless ROM, Supple. Negative for: Decreased ROM Cardiovascular/Chest: Positive for: Chest Non Tender, Tachycardia. Negative for: Gallop, Murmur Respiratory: Positive for: Normal Breath Sounds. 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 The pt will be treated with 20meq of Kdur; pending re- evaluation, he will be discharged with instructions to follow up with his PMD for blood testing Disposition - Clinical Impression Clinical Impression: Hypokalemia - Patient ED Disposition Is Patient to be Admitted: No Doctor Will See Patient In The: Office Counseled Patient/Family Regarding: Studies Performed, Diagnosis, Need For Followup - Disposition Referrals: [facility] [Outside] Disposition: Routine/Home Disposition Time: 23:59 Condition: STABLE Instructions: Hypokalemia, Hypokalemia (DC) Forms: [employer] (Mohawk)
[2018-04-11 21:40] LABS: BASO # 0.1 K/uL (0.0-0.2); BASO % 1.3 % (0.0-2.0); EOS % 0.6 % (0.0-4.0); HEMOGLOBIN 15.3 g/dL (12.0-18.0); LYMPH # 1.9 K/uL (1.0-4.3); LYMPH % 27.1 % (20.0-40.0); MEAN CELL VOLUME 87.8 fl (80.0-94.0); MEAN CORPUSCULAR HGB CONC 34.2 g/dL (33.0-37.0); MEAN PLATELET VOLUME 7.8 fl (7.2-11.7); MONO # 0.4 K/uL (0.0-0.8); MONO % 5.2 % (0.0-10.0); NEUT # 4.7 K/uL (1.8-7.0); NEUT % 65.8 % (50.0-75.0); RBC 5.1 Mil/uL (4.40-5.90); RED CELL DISTRIBUTION WIDTH 13.1 % (11.5-14.5); WHITE BLOOD COUNT 7.1 K/uL (4.8-10.8)
[2018-04-11 21:56] LABS: ALB/GLOB RATIO 1.2 (1.0-2.1); ALBUMIN 4.7 g/dL (3.5-5.0); ALT/SGPT 26 U/L (21-72); AST/SGOT 21 U/L (17-59); BLOOD UREA NITROGEN 11 mg/dl (9-20); CALCIUM 9.9 mg/dL (8.4-10.2); GFR NON-AFRICAN AMERICAN > 60
[2018-04-11 22:05] LABS: URINE BILIRUBIN NEGATIVE (NEGATIVE); URINE BLOOD NEGATIVE (NEGATIVE); URINE CLARITY CLEAR (Clear); URINE COLOR YELLOW (YELLOW); URINE GLUCOSE (UA) NEG (NEGATIVE); URINE LEUKOCYTE ESTERASE NEG Leu/uL (Negative); URINE PROTEIN NEGATIVE (NEGATIVE); URINE UROBILINOGEN 0.2-1.0 mg/dL (0.2-1.0)
[2018-04-11] MEDS ORDERED: Potassium Chloride 20 mEq ER Tab PO ONE (23:18)
[2018-04-12] MEDS ORDERED: Potassium Chloride 20 mEq ER Tab PO ONE (00:14)
[2018-04-12 00:19] VITALS: BP 134/85; PULSE 120
--- NOTE | 2018-04-12 18:47 | CARD ---
APPROVED REPORT Date of service: 04/11/2018 EKG Measurement Heart [id number] CT [id number] <Conclusion> Sinus tachycardia Otherwise normal ECG
== END 2018-04-12 01:00 | disposition home or self-care (01) ==
LOC: H.ER 20:09
DX: E87.6 Hypokalemia (principal); I10 Essential (primary) hypertension; Z86.59 Personal history of other mental and behavioral disorders
CPT/HCPCS: 80053; 81003; 84484; 85025; 87804; 93005; 99285; J7030

== ENCOUNTER 2018-04-12 13:24 | Emergency (ER) | payer MEDICAID, SELFPAY ==
[2018-04-12 13:25] VITALS: BMI 31.3
[2018-04-12 13:40] VITALS: BP 182/94; RESP 16; TEMP 98; O2SAT 98
--- NOTE | 2018-04-12 14:18 | ED PDOC ---
HPI: Chest Pain Time Seen by Provider: 04/12/18 14:10 Chief Complaint (Nursing): Chest Pain Chief Complaint (Provider): Chest Pain History Per: Patient History/Exam Limitations: no limitations Onset/Duration Of Symptoms: Hrs Current Symptoms Are (Timing): Better Severity: None Additional Complaint(s): 37 y/o undomiciled male presents to the ED for an evaluation of continues chest pain since yesterday. He was evaluated at [facility] ED, [facility] and outpatient clinic with the same complaint yesterday. Currently he reports he is light-headed and has a headache. He states the chest pain and right arm pain has resolved in the ED. Otherwise, patient denies any cardiac, hypertension, urinary symptoms, NVD, abdominal pain, cough, fever, ill contacts, SOB, PARKER or ear pain. PMD: [facility] clinic Past Medical History Reviewed: Historical Data, Nursing Documentation, Vital Signs Vital Signs: Last Vital Signs Temp 98.0 F 04/12/18 13:36 Pulse 88 04/12/18 13:36 Resp 16 04/12/18 13:36 BP 182/94 H 04/12/18 13:36 Pulse Ox 98 04/12/18 13:36 - Medical History PMH: HTN, Schizophrenia Denies: Diabetes, Hepatitis, HIV, Seizures, Sexually Transmitted Disease - Family History Family History: States: Unknown Family Hx - Immunization History Hx Tetanus Toxoid Vaccination: No Hx Influenza Vaccination: No Hx Pneumococcal Vaccination: No - Home Medications Home Medications: Ambulatory Orders Medication Instructions Recorded Benztropine [Cogentin] 1 mg PO BID tab 09/25/17 Divalproex [Depakote DR] 500 mg PO BID tcp 09/25/17 hydrOXYzine HCl [Atarax] 25 mg PO Q6 PRN tab 09/25/17 traZODone [Desyrel] 100 mg PO HS tab 09/25/17 risperiDONE [RisperDAL Tab] 4 mg PO QPM #30 tab 02/21/18 Calamine/Zinc Oxide [Calamine 1 applic TOP BID PRN #1 bottle 04/01/18 Lotion] DiphenhydrAMINE [Benadryl] 50 mg PO Q6 PRN #30 cap 04/01/18 Famotidine [Pepcid] 40 mg PO DAILY #5 tablet 04/01/18 Methylprednisolone [Medrol Dose 4 mg PO DAILY #21 mg 04/01/18 Pack (21 tabs)] Calamine/Zinc Oxide [Calamine 1 applic TOP BID PRN #2 bottle 04/07/18 Lotion] Hydrocortisone 1% Cream [Cortizone 1 appl TP BID #60 g 04/12/18 1% Cream] - Allergies Allergies/Adverse Reactions: Allergies Allergy/AdvReac Type Severity Reaction Status Date / Time No Known Allergies Allergy Verified 04/12/18 13:36 Review of Systems ROS Statement: Except As Marked, All Systems Reviewed And Found Negative Constitutional: Negative for: Fever, Chills Cardiovascular: Positive for: Chest Pain, Light Headedness Respiratory: Negative for: Cough, Shortness of Breath Gastrointestinal: Negative for: Nausea, Vomiting, Abdominal Pain, Diarrhea Musculoskeletal: Positive for: Arm Pain Neurological: Positive for: Headache Physical Exam - Reviewed Nursing Documentation Reviewed: Yes Vital Signs Reviewed: Yes - Physical Exam Appears: Positive for: Well, Non-toxic, No Acute Distress. Negative for: Uncomfortable Head Exam: Positive for: ATRAUMATIC, NORMAL INSPECTION, NORMOCEPHALIC Skin: Positive for: Normal Color, Warm, Dry. Negative for: Diaphoresis, Pallor, Rash Eye Exam: Positive for: Normal appearance, EOMI, PERRL. Negative for: Nystagmus, Periorbital swelling, Periorbital tenderness ENT: Positive for: Normal ENT Inspection Neck: Positive for: Normal, Painless ROM, Supple. Negative for: Decreased ROM Cardiovascular/Chest: Positive for: Tachycardia Respiratory: Positive for: Normal Breath Sounds. Negative for: Decreased Breath Sounds, Wheezing, Respiratory Distress Pulses-Carotid (L): 2+ Pulses-Carotid (R): 2+ Pulses-Dorsalis Pedis (L): 2+ Pulses-Dorsalis Pedis (R): 2+ Gastrointestinal/Abdominal: Positive for: Normal Exam, Soft. Negative for: Tenderness Extremity: Positive for: Normal ROM. Negative for: Tenderness, Pedal Edema, Deformity Neurologic/Psych: Positive for: Alert, computer teacher II-XII, Oriented (x3) - Laboratory Results Result Diagrams: 04/12/18 14:32 04/12/18 14:32 - ECG ECG Rhythm: Positive for: Sinus Tachycardia Rate: 106 O2 Sat by Pulse Oximetry: 98 Medical Decision Making Medical Decision Making: Time: 1416 Plan: EKG BNP CMP Drug screen Troponin I CBC w/ Differential Chest two views [RAD] Urinalysis Reevaluation 1450 Chest X-ray FINDINGS: LUNGS: No active pulmonary disease. PLEURA: No significant pleural effusion identified. No pneumothorax apparent. CARDIOVASCULAR: No aortic atherosclerotic calcification present. Normal cardiac size. No pulmonary vascular congestion. OSSEOUS STRUCTURES: Minor multilevel degenerative spondylosis of the thoracic spine VISUALIZED UPPER ABDOMEN: Normal. OTHER FINDINGS: None. IMPRESSION: No active disease. Scribe Attestation: Documented by Saritha Montez, acting as a scribe for Pelon Mendoza PA-C. Provider Scribe Attestation: All medical record entries made by the Scribe were at my direction and personally dictated by me. I have reviewed the chart and agree that the record accurately reflects my personal performance of the history, physical exam, medical decision making, and the department course for this patient. I have also personally directed, reviewed, and agree with the discharge instructions and disposition. Disposition - Clinical Impression Clinical Impression: Atypical chest pain - Patient ED Disposition Is Patient to be Admitted: No Doctor Will See Patient In The: Office Counseled Patient/Family Regarding: Studies Performed, Diagnosis, Need For Followup - Disposition Referrals: [facility] [Outside] Disposition: Routine/Home Disposition Time: 16:09 Condition: STABLE Additional Instructions: Pt has an appointment at the [facility] clinic on April 14 Instructions: Chest Pain That Is Not Caused by the Heart (DC) Forms: [employer] (Slovak)
[2018-04-12 14:38] LABS: BASO # 0.1 K/uL (0.0-0.2); BASO % 1.2 % (0.0-2.0); EOS # 0.3 K/uL (0.0-0.7); EOS % 4.9 % (0.0-4.0); HEMOGLOBIN 14.9 g/dL (12.0-18.0); LYMPH % 34.6 % (20.0-40.0); MEAN CELL VOLUME 88.9 fl (80.0-94.0); MEAN CORPUSCULAR HEMOGLOBIN 30.2 pg (27.0-31.0); MEAN CORPUSCULAR HGB CONC 33.9 g/dL (33.0-37.0); MEAN PLATELET VOLUME 7.7 fl (7.2-11.7); MONO # 0.5 K/uL (0.0-0.8); MONO % 9.4 % (0.0-10.0); NEUT # 2.9 K/uL (1.8-7.0); NEUT % 49.9 % (50.0-75.0); RBC 4.92 Mil/uL (4.40-5.90); RED CELL DISTRIBUTION WIDTH 13.3 % (11.5-14.5); WHITE BLOOD COUNT 5.8 K/uL (4.8-10.8)
[2018-04-12 14:43] VITALS: PULSE 106
[2018-04-12 14:54] LABS: ALB/GLOB RATIO 1.2 (1.0-2.1); ALBUMIN 4.2 g/dL (3.5-5.0); ALT/SGPT 24 U/L (21-72); AST/SGOT 22 U/L (17-59); BLOOD UREA NITROGEN 14 mg/dl (9-20); CALCIUM 9.6 mg/dL (8.4-10.2); GFR NON-AFRICAN AMERICAN > 60
--- NOTE | 2018-04-12 14:54 | RAD ---
Date of service: 04/12/2018 HISTORY: cp COMPARISON: Comparison made with chest radiograph 08/17/2017. TECHNIQUE: Chest PA and lateral FINDINGS: LUNGS: No active pulmonary disease. PLEURA: No significant pleural effusion identified. No pneumothorax apparent. CARDIOVASCULAR: No aortic atherosclerotic calcification present. Normal cardiac size. No pulmonary vascular congestion. OSSEOUS STRUCTURES: Minor multilevel degenerative spondylosis of the thoracic spine VISUALIZED UPPER ABDOMEN: Normal. OTHER FINDINGS: None. IMPRESSION: No active disease.
[2018-04-12 14:58] LABS: BARBITURATES, UR NEGATIVE (NEGATIVE); BENZODIAZEPINES, UR NEGATIVE (NEGATIVE); OPIATES, UR NEGATIVE (NEGATIVE); PHENCYCLIDINE, UR NEGATIVE (NEGATIVE)
[2018-04-12 15:05] LABS: SQUAMOUS EPITHIAL < 1 /hpf (0-5); URINE BILIRUBIN NEGATIVE (NEGATIVE); URINE BLOOD NEGATIVE (NEGATIVE); URINE CLARITY SLIGHTY-CLOUDY (Clear); URINE GLUCOSE (UA) NEG (NEGATIVE); URINE LEUKOCYTE ESTERASE NEG Leu/uL (Negative); URINE PROTEIN NEGATIVE (NEGATIVE)
[2018-04-12 15:35] LABS: URINE COLOR YELLOW (YELLOW)
[2018-04-12 16:19] LABS: B-TYPE NATRIURETIC PEPTIDE < 11.1 pg/ml (0-450)
--- NOTE | 2018-04-12 18:54 | CARD ---
APPROVED REPORT Date of service: 04/12/2018 EKG Measurement Heart [id number] [place] [id number] [id number] <Conclusion> Sinus tachycardia Otherwise normal ECG
== END 2018-04-12 16:20 | disposition home or self-care (01) ==
LOC: H.ER 13:24
DX: R07.89 Other chest pain (principal)

== ENCOUNTER 2018-04-14 22:09 | Emergency (ER) | payer MEDICAID ==
[2018-04-14 22:09] VITALS: BMI 31.3
[2018-04-14 22:52] VITALS: RESP 16; O2SAT 97
--- NOTE | 2018-04-14 23:06 | ED PDOC ---
HPI: Chest Pain Time Seen by Provider: 04/14/18 22:20 Chief Complaint (Nursing): Shortness Of Breath History Per: Patient Additional Complaint(s): Pt. states for the past 4-5 days he's had pruritus, SOB, headache, chest pain. States he has been going to [facility] and this ED for the symptoms. Today he went to [facility] as he was instructed and was prescribed Benadryl and advised to go to ED if symptoms returned. Pt. is concerned his BP is elevated. Currently without any symptoms. Denies fever, leg pain, hx of DVT or PE, weakness. Past Medical History Reviewed: Historical Data, Nursing Documentation, Vital Signs Vital Signs: Last Vital Signs Temp 98.1 F 04/14/18 22:13 Pulse 97 H 04/14/18 22:13 Resp 16 04/14/18 22:48 BP 155/98 H 04/14/18 22:13 Pulse Ox 97 04/14/18 22:48 - Medical History PMH: HTN, Schizophrenia Denies: Diabetes, Hepatitis, HIV, Chronic Kidney Disease, Seizures, Sexually Transmitted Disease - Surgical History Surgical History: No Surg Hx - Family History Family History: States: No Known Family Hx Denies: Stroke, [place], CAD - Social History Current smoker - smoking cessation education provided: No Ex-Smoker (has not smoked in the last 12 months): No Drugs: Denies - Immunization History Hx Tetanus Toxoid Vaccination: No Hx Influenza Vaccination: No Hx Pneumococcal Vaccination: No - Home Medications Home Medications: Ambulatory Orders Medication Instructions Recorded RX: Benztropine [Cogentin] 1 mg PO BID tab 09/25/17 RX: Divalproex [Depakote DR] 500 mg PO BID tcp 09/25/17 RX: hydrOXYzine HCl [Atarax] 25 mg PO Q6 PRN tab 09/25/17 RX: traZODone [Desyrel] 100 mg PO HS tab 09/25/17 RX: risperiDONE [RisperDAL Tab] 4 mg PO QPM #30 tab 02/21/18 Calamine/Zinc Oxide [Calamine 1 applic TOP BID PRN #1 bottle 04/01/18 Lotion] DiphenhydrAMINE [Benadryl] 50 mg PO Q6 PRN #30 cap 04/01/18 Famotidine [Pepcid] 40 mg PO DAILY #5 tablet 04/01/18 Methylprednisolone [Medrol Dose 4 mg PO DAILY #21 mg 04/01/18 Pack (21 tabs)] Calamine/Zinc Oxide [Calamine 1 applic TOP BID PRN #2 bottle 04/07/18 Lotion] RX: Hydrocortisone 1% Cream 1 appl TP BID #60 g 04/12/18 [Cortizone 1% Cream] Permethrin 5% [Permethrin 5% Cream] 60 gm EXT ONCE #1 tube 04/15/18 - Allergies Allergies/Adverse Reactions: Allergies Allergy/AdvReac Type Severity Reaction Status Date / Time No Known Allergies Allergy Verified 04/14/18 22:16 Curb-65 Severity Score - CURB-65 Severity Score Confusion: No Bun >19mg/dl (>7mmol/L): No Respiratory Rate greater than/equal to 30: No Systolic BP <90 or Diastolic BP less than/equal 60mmHg: No Age >64: No Curb-65 Score: 0 Percentage 30-day mortality: 0.6% Review of Systems ROS Statement: Except As Marked, All Systems Reviewed And Found Negative Cardiovascular: Positive for: Chest Pain Musculoskeletal: Negative for: Leg Pain Physical Exam - Physical Exam Appears: Positive for: Well, Non-toxic, No Acute Distress Skin: Positive for: Normal Color, Warm. Negative for: Rash Eye Exam: Positive for: Normal appearance Cardiovascular/Chest: Positive for: Regular Rate, Rhythm Respiratory: Positive for: Normal Breath Sounds. Negative for: Respiratory Distress Pulses-Dorsalis Pedis (L): 2+ Pulses-Dorsalis Pedis (R): 2+ Extremity: Negative for: Calf Tenderness (b/l) Neurologic/Psych: Positive for: Alert, Oriented (x3) - Laboratory Results Result Diagrams: 04/14/18 23:25 04/14/18 23:25 - ECG ECG: Positive for: Interpreted By Me ECG Rhythm: Positive for: Sinus Rhythm. Negative for: ST/T Changes Rate: 99 O2 Sat by Pulse Oximetry: 97 - Progress ED Course And Treament: As per RN pt. was found to have bugs on him. Pt. decontaminated and given a shower. Permethrin shampoo given in ED. Permethrin cream not available in hospital. Permethrin will be prescribed. Disposition - Clinical Impression Clinical Impression: Chest pain, Insect bites - Patient ED Disposition Is Patient to be Admitted: No - Disposition Referrals: [facility] [Outside] Disposition: Routine/Home Disposition Time: 01:54 Condition: STABLE Additional Instructions: FOLLOW UP WITH PMD FOR FURTHER EVALUATION RETURN TO ED IMMEDIATELY IF SYMPTOMS WORSEN ROMEL PAREDES, thank you for letting us take care of you today. Your provider was Joslyn Patel MD and you were treated for DIFFICULTY BREATHING. The emergency medical care you received today was directed at your acute symptoms. If you were prescribed any medication, please fill it and take as directed. It may take several days for your symptoms to resolve. Return to the Emergency Department if your symptoms worsen, do not improve, or if you have any other problems. Please contact your doctor or call one of the physicians/clinics you have been referred to that are listed on the Patient Visit Information form that is included in your discharge packet. Bring any paperwork you were given at discharge with you along with any medications you are taking to your follow up visit. Our treatment cannot replace ongoing medical care by a primary care provider outside of the emergency department. Thank you for allowing the [facility] team to be part of your care today. If you had an X-Ray or CT scan: A Radiologist will review the ED reading if any change in treatment is needed we will contact you. If you had a blood, urine, or wound culture: It will take several days for the results, if any change in treatment is needed we will contact you. If you had an STI test: It will take 48 hours for the results. Please call after 1 week if you have not heard back. Prescriptions: Permethrin 5% [Permethrin 5% Cream] 60 gm EXT ONCE #1 tube Instructions: Chest Pain (DC), Insect Bites and Stings (DC) Forms: [employer] (Ethiopian)
[2018-04-14] MEDS ORDERED: Permethrin 1% Kit 59 ML BOTTLE TOP ONE (23:45)
[2018-04-14 23:50] LABS: BASO # 0.1 K/uL (0.0-0.2); BASO % 1.3 % (0.0-2.0); EOS # 0.6 K/uL (0.0-0.7); EOS % 8.3 % (0.0-4.0); HEMOGLOBIN 14.9 g/dL (12.0-18.0); LYMPH # 2.1 K/uL (1.0-4.3); LYMPH % 32.1 % (20.0-40.0); MEAN CELL VOLUME 89.1 fl (80.0-94.0); MEAN CORPUSCULAR HEMOGLOBIN 29.7 pg (27.0-31.0); MEAN CORPUSCULAR HGB CONC 33.4 g/dL (33.0-37.0); MEAN PLATELET VOLUME 7.7 fl (7.2-11.7); MONO # 0.5 K/uL (0.0-0.8); MONO % 6.9 % (0.0-10.0); NEUT # 3.4 K/uL (1.8-7.0); NEUT % 51.4 % (50.0-75.0); NRBC % 0.1 % (0.0-0.0); RBC 5.01 Mil/uL (4.40-5.90); RED CELL DISTRIBUTION WIDTH 13.6 % (11.5-14.5); WHITE BLOOD COUNT 6.7 K/uL (4.8-10.8)
[2018-04-14 23:54] LABS: ALB/GLOB RATIO 1.3 (1.0-2.1); ALBUMIN 4.4 g/dL (3.5-5.0); ALT/SGPT 30 U/L (21-72); AST/SGOT 21 U/L (17-59); BLOOD UREA NITROGEN 14 mg/dl (9-20); CALCIUM 9.4 mg/dL (8.4-10.2); GFR NON-AFRICAN AMERICAN > 60
[2018-04-15 00:36] LABS: BARBITURATES, UR NEGATIVE (NEGATIVE); BENZODIAZEPINES, UR NEGATIVE (NEGATIVE); OPIATES, UR NEGATIVE (NEGATIVE); PHENCYCLIDINE, UR NEGATIVE (NEGATIVE)
[2018-04-15 01:58] VITALS: BP 148/84; PULSE 99; TEMP 98.3
== END 2018-04-15 03:04 | disposition home or self-care (01) ==
LOC: H.ER 22:09
DX: R07.89 Other chest pain (principal); L29.9 Pruritus, unspecified; I10 Essential (primary) hypertension; F20.9 Schizophrenia, unspecified

== ENCOUNTER 2018-04-28 08:16 | Emergency (ER) | payer MEDICAID ==
[2018-04-28 08:29] VITALS: BMI 30.5
--- NOTE | 2018-04-28 09:21 | ED PDOC ---
Upper Extremity Pain/Injury Time Seen by Provider: 04/28/18 08:41 Chief Complaint (Nursing): Upper Extremity Problem/Injury Chief Complaint (Provider): Upper Extremity Problem/Injury History Per: Patient History/Exam Limitations: no limitations Onset/Duration Of Symptoms: Mins, Hrs (x1.5 hours ago) Current Symptoms Are (Timing): Better Additional Complaint(s): 37 year old male with a past medical history of HTN and schizophrenia, who presents to the emergency department complaining of cold exposure. Patient states that he was outside in cold for x30 minutes and his left hand started to feel stiff. He states that he has been in the ED for x1 hour and has started to feel better and is now able to move his hand without any pain. PMD: No provider Past Medical History Reviewed: Historical Data, Nursing Documentation, Vital Signs Vital Signs: Last Vital Signs Temp 97.4 F L 04/28/18 08:29 Pulse 89 04/28/18 08:29 Resp 20 04/28/18 08:29 BP 123/54 L 04/28/18 08:29 Pulse Ox 100 04/28/18 08:29 - Medical History PMH: HTN, Schizophrenia Denies: Diabetes, Hepatitis, HIV, Chronic Kidney Disease, Seizures, Sexually Transmitted Disease - Surgical History Surgical History: No Surg Hx - Family History Family History: States: Unknown Family Hx Denies: Stroke, [place], CAD - Immunization History Hx Tetanus Toxoid Vaccination: No Hx Influenza Vaccination: No Hx Pneumococcal Vaccination: No - Home Medications Home Medications: Ambulatory Orders Medication Instructions Recorded Benztropine [Cogentin] 1 mg PO BID tab 09/25/17 Divalproex [Depakote DR] 500 mg PO BID tcp 09/25/17 hydrOXYzine HCl [Atarax] 25 mg PO Q6 PRN tab 09/25/17 traZODone [Desyrel] 100 mg PO HS tab 09/25/17 risperiDONE [RisperDAL Tab] 4 mg PO QPM #30 tab 02/21/18 Calamine/Zinc Oxide [Calamine 1 applic TOP BID PRN #1 bottle 04/01/18 Lotion] DiphenhydrAMINE [Benadryl] 50 mg PO Q6 PRN #30 cap 04/01/18 Famotidine [Pepcid] 40 mg PO DAILY #5 tablet 04/01/18 Methylprednisolone [Medrol Dose 4 mg PO DAILY #21 mg 04/01/18 Pack (21 tabs)] Calamine/Zinc Oxide [Calamine 1 applic TOP BID PRN #2 bottle 04/07/18 Lotion] Hydrocortisone 1% Cream [Cortizone 1 appl TP BID #60 g 04/12/18 1% Cream] Permethrin 5% [Permethrin 5% Cream] 60 gm EXT ONCE #1 tube 04/15/18 - Allergies Allergies/Adverse Reactions: Allergies Allergy/AdvReac Type Severity Reaction Status Date / Time No Known Allergies Allergy Verified 04/14/18 22:16 Review of Systems ROS Statement: Except As Marked, All Systems Reviewed And Found Negative Musculoskeletal: Positive for: Hand Pain (hand stiffness (resolved)) Physical Exam - Reviewed Nursing Documentation Reviewed: Yes Vital Signs Reviewed: Yes - Physical Exam Appears: Positive for: Non-toxic, No Acute Distress Head Exam: Positive for: ATRAUMATIC, NORMOCEPHALIC Skin: Positive for: Normal Color, Warm, Dry Cardiovascular/Chest: Positive for: Regular Rate, Rhythm. Negative for: Murmur Respiratory: Positive for: Normal Breath Sounds. Negative for: Respiratory Distress Extremity: Positive for: Normal ROM, Other (L HAND: Normal color, no lesions, <2 sec cap refill, sensation intact, FROM, MS 5/5). Negative for: Tenderness, Pedal Edema, Deformity, Swelling Neurologic/Psych: Positive for: Alert, Oriented - ECG O2 Sat by Pulse Oximetry: 100 (RA) Pulse Ox Interpretation: Normal Medical Decision Making Medical Decision Making: Time: 914 Impression: Cold exposure Plan: --Warm Environment Scribe Attestation: Documented by Keenan Geiger, acting as a scribe for Antoinette Kidd MD. Provider Scribe Attestation: All medical record entries made by the Scribe were at my direction and personally dictated by me. I have reviewed the chart and agree that the record accurately reflects my personal performance of the history, physical exam, medical decision making, and the department course for this patient. I have also personally directed, reviewed, and agree with the discharge instructions and disposition. Disposition - Clinical Impression Clinical Impression: Exposure to environmental cold - Disposition Referrals: [facility] [Outside] Disposition: Routine/Home Disposition Time: 10:14 Condition: GOOD Instructions: [employer] Forms: [employer] ([place] Leone[place])
[2018-04-28 10:15] VITALS: BP 121/68; PULSE 69; RESP 16; TEMP 98.2
[2018-04-28 11:06] VITALS: O2SAT 100
== END 2018-04-28 10:14 | disposition home or self-care (01) ==
LOC: H.ER 08:16
DX: T69.9XXA Effect of reduced temperature, unspecified, initial encounter (principal); I10 Essential (primary) hypertension; Z86.59 Personal history of other mental and behavioral disorders

== ENCOUNTER 2018-05-18 16:03 | Emergency (ER) | payer MEDICAID ==
[2018-05-18 16:03] VITALS: BMI 30.5
[2018-05-18 16:15] VITALS: TEMP 98.6; O2SAT 100
[2018-05-18] MEDS ORDERED: Permethrin 1% Kit 59 ML BOTTLE TOP STA (16:41)
--- NOTE | 2018-05-18 16:46 | ED PDOC ---
HPI: Hypertension/Hypotension Time Seen by Provider: 05/18/18 16:29 Chief Complaint (Nursing): Palpitations Chief Complaint (Provider): Palpitations History Per: Patient History/Exam Limitations: no limitations Onset/Duration Of Symptoms: Hrs (x3) Current Symptoms Are (Timing): Gone Now Additional Complaint(s): 37 year old male presents to the ED for evaluation of palpitations and shortness of breath onset three hours, but denies any symptoms at this time. Denies chest pain, fever, and cough. PMD: none provided Past Medical History Reviewed: Historical Data, Nursing Documentation, Vital Signs Vital Signs: Last Vital Signs Temp 98.6 F 05/18/18 16:12 Pulse 89 05/18/18 16:12 Resp 16 05/18/18 16:12 BP 166/100 H 05/18/18 16:12 Pulse Ox 100 05/18/18 16:12 - Medical History PMH: HTN, Schizophrenia Denies: Diabetes, Hepatitis, HIV, Chronic Kidney Disease, Seizures, Sexually Transmitted Disease - Surgical History Surgical History: No Surg Hx - Family History Family History: States: Unknown Family Hx Denies: Stroke, [place], CAD - Immunization History Hx Tetanus Toxoid Vaccination: No Hx Influenza Vaccination: No Hx Pneumococcal Vaccination: No - Home Medications Home Medications: Ambulatory Orders Medication Instructions Recorded Benztropine [Cogentin] 1 mg PO BID tab 09/25/17 Divalproex [Depakote DR] 500 mg PO BID tcp 09/25/17 hydrOXYzine HCl [Atarax] 25 mg PO Q6 PRN tab 09/25/17 traZODone [Desyrel] 100 mg PO HS tab 09/25/17 risperiDONE [RisperDAL Tab] 4 mg PO QPM #30 tab 02/21/18 Calamine/Zinc Oxide [Calamine 1 applic TOP BID PRN #1 bottle 04/01/18 Lotion] DiphenhydrAMINE [Benadryl] 50 mg PO Q6 PRN #30 cap 04/01/18 Famotidine [Pepcid] 40 mg PO DAILY #5 tablet 04/01/18 Methylprednisolone [Medrol Dose 4 mg PO DAILY #21 mg 04/01/18 Pack (21 tabs)] Calamine/Zinc Oxide [Calamine 1 applic TOP BID PRN #2 bottle 04/07/18 Lotion] Hydrocortisone 1% Cream [Cortizone 1 appl TP BID #60 g 04/12/18 1% Cream] Permethrin 5% [Permethrin 5% Cream] 60 gm EXT ONCE #1 tube 04/15/18 - Allergies Allergies/Adverse Reactions: Allergies Allergy/AdvReac Type Severity Reaction Status Date / Time No Known Allergies Allergy Verified 05/18/18 16:11 Review of Systems ROS Statement: Except As Marked, All Systems Reviewed And Found Negative Constitutional: Negative for: Fever Cardiovascular: Positive for: Palpitations. Negative for: Chest Pain Respiratory: Positive for: Shortness of Breath. Negative for: Cough Physical Exam - Reviewed Nursing Documentation Reviewed: Yes Vital Signs Reviewed: Yes - Physical Exam Appears: Positive for: No Acute Distress (but disheveled) Head Exam: Positive for: ATRAUMATIC, NORMOCEPHALIC. Negative for: NORMAL INSPECTION (lice noted) Skin: Positive for: Normal Color Eye Exam: Positive for: Normal appearance Neck: Positive for: Normal, Painless ROM, Supple Cardiovascular/Chest: Positive for: Regular Rate, Rhythm, Chest Non Tender Respiratory: Positive for: Normal Breath Sounds. Negative for: Respiratory Distress Gastrointestinal/Abdominal: Positive for: Normal Exam, Soft. Negative for: Tenderness Back: Positive for: Normal Inspection Extremity: Positive for: Normal ROM (all four extremities) Neurologic/Psych: Positive for: Alert, Oriented (x3). Negative for: Motor/Sensory Deficits - ECG O2 Sat by Pulse Oximetry: 100 (RA) Pulse Ox Interpretation: Normal Medical Decision Making Medical Decision Making: Time: 1615 Initial Impression: palpitations Initial Plan: --EKG --Decon secondary to lice Scribe Attestation: Documented by Anca Looney, acting as a scribe for Antoinette Kidd MD. Provider Scribe Attestation: All medical record entries made by the Scribe were at my direction and personally dictated by me. I have reviewed the chart and agree that the record accurately reflects my personal performance of the history, physical exam, medical decision making, and the department course for this patient. I have also personally directed, reviewed, and agree with the discharge instructions and disposition. Disposition - Disposition
[2018-05-18 18:06] LABS: BASO # 0.1 K/uL (0.0-0.2); EOS # 0.2 K/uL (0.0-0.7); EOS % 4.4 % (0.0-4.0); HEMOGLOBIN 15.6 g/dL (12.0-18.0); LYMPH # 1.5 K/uL (1.0-4.3); LYMPH % 31.3 % (20.0-40.0); MEAN CELL VOLUME 86.9 fl (80.0-94.0); MEAN CORPUSCULAR HEMOGLOBIN 29.6 pg (27.0-31.0); MEAN PLATELET VOLUME 8.3 fl (7.2-11.7); MONO # 0.4 K/uL (0.0-0.8); MONO % 7.4 % (0.0-10.0); NEUT # 2.7 K/uL (1.8-7.0); NEUT % 55.9 % (50.0-75.0); RBC 5.26 Mil/uL (4.40-5.90); RED CELL DISTRIBUTION WIDTH 13.8 % (11.5-14.5); WHITE BLOOD COUNT 4.9 K/uL (4.8-10.8)
[2018-05-18 18:11] LABS: PROTHROMBIN TIME 11.5 Seconds (9.8-13.1)
[2018-05-18 18:14] LABS: PARTIAL THROMBOPLASTIN TIME 30.5 Seconds (25.6-37.1)
[2018-05-18 18:32] LABS: BLOOD UREA NITROGEN 13 mg/dl (9-20); CALCIUM 9.5 mg/dL (8.4-10.2); GFR NON-AFRICAN AMERICAN > 60
[2018-05-18 18:34] LABS: ALB/GLOB RATIO 1.3 (1.0-2.1); ALBUMIN 5.5 g/dL (3.5-5.0); ALT/SGPT 10 U/L (21-72); AST/SGOT 61 U/L (17-59)
[2018-05-18] MEDS ORDERED: Sodium Chloride 0.9% 50 ML IV ONE (19:20)
[2018-05-18] MEDS ORDERED: Iodixanol 320 MG/ML 100 ML BOTTLE IV ONE (19:20)
[2018-05-18 23:47] VITALS: BP 139/86; PULSE 78; RESP 18
--- NOTE | 2018-05-19 08:11 | RAD ---
Date of service: 05/18/2018 HISTORY: SOB COMPARISON: Chest radiographs 04/12/2018. TECHNIQUE: Chest PA and lateral FINDINGS: LUNGS: No active pulmonary disease. PLEURA: No significant pleural effusion identified. No pneumothorax apparent. CARDIOVASCULAR: No aortic atherosclerotic calcification present. Normal cardiac size. No pulmonary vascular congestion. OSSEOUS STRUCTURES: No significant abnormalities. VISUALIZED UPPER ABDOMEN: Normal. OTHER FINDINGS: None. IMPRESSION: No interval acute cardiopulmonary disease appreciated.
--- NOTE | 2018-05-19 08:56 | CARD ---
APPROVED REPORT Date of service: 05/18/2018 EKG Measurement Heart [id number] [id number] <Conclusion> Normal sinus rhythm Normal ECG
--- NOTE | 2018-05-19 09:49 | CT ---
Date of service: 05/18/2018 PROCEDURE: CT Chest with contrast (Pulmonary Angiogram) HISTORY: Palpitations COMPARISON: None available. TECHNIQUE: Axial computed tomography images were obtained of the chest in the pulmonary arterial phase of enhancement. Coronal and sagittal reformatted images were created and reviewed. Intravenous contrast dose: Visipaque 320, 95 cc Radiation dose: Total exam DLP = 344.44 mGy-cm. This CT exam was performed using one or more of the following dose reduction techniques: Automated exposure control, adjustment of the mA and/or kV according to patient size, and/or use of iterative reconstruction technique. FINDINGS: PULMONARY ARTERIES: Unremarkable. No pulmonary embolism. AORTA: No acute findings. No thoracic aortic aneurysm. No aortic atherosclerotic calcification or mural plaque present. LUNGS: Unremarkable. No nodule, mass or pulmonary consolidation. PLEURAL SPACES: Unremarkable. No effusion or pneumothorax. HEART: Unremarkable. No cardiomegaly. No significant pericardial effusion. LYMPH NODES: No lymphadenopathy. BONES, CHEST WALL: Unremarkable. No fracture or destructive lesion OTHER FINDINGS: Unremarkable. IMPRESSION: Unremarkable CT pulmonary angiogram. No pulmonary embolus. No infiltrate, mass, significant lymphadenopathy, pleural or pericardial effusion. Concordant preliminary report from [facility], 05/18/2018 8:01 p.m..
== END 2018-05-18 20:10 | disposition home or self-care (01) ==
LOC: H.ER 16:03
DX: R00.2 Palpitations (principal); Z86.59 Personal history of other mental and behavioral disorders; I10 Essential (primary) hypertension; B85.2 Pediculosis, unspecified
CPT/HCPCS: 71046; 71275; 80053; 84443; 85025; 85378; 85610; 85730; 93005; 99284; Q9967

== ENCOUNTER 2018-05-19 00:56 | Emergency (ER) | payer MEDICAID ==
[2018-05-19 00:56] VITALS: BMI 30.5
[2018-05-19] MEDS ORDERED: Permethrin 5% CREAM TOP STA (01:46)
--- NOTE | 2018-05-19 02:39 | ED PDOC ---
HPI: Chest Pain Time Seen by Provider: 05/19/18 02:20 Chief Complaint (Nursing): Dizziness/Lightheaded Chief Complaint (Provider): chest pain History Per: Patient History/Exam Limitations: no limitations Onset/Duration Of Symptoms: Hrs (2) Current Symptoms Are (Timing): Still Present Quality: Tightness Additional Complaint(s): 37 y/o male presents for evaluation of chest tightness x 2 hours. Denies fever, headache, cough, shortness of breath, palpitations, leg pain/swelling. Of note, patient just discharged from ED a few hours ago for similar symptoms. Patient was found to have lice on him at that time and was deconned and was deconned again just now after found to be in clothes in which were sitting inside infested belongings Past Medical History Reviewed: Historical Data, Nursing Documentation, Vital Signs - Medical History PMH: HTN, Schizophrenia Denies: Diabetes, Hepatitis, HIV, Chronic Kidney Disease, Seizures, Sexually Transmitted Disease - Family History Family History: States: Unknown Family Hx Denies: Stroke, [place], CAD - Immunization History Hx Tetanus Toxoid Vaccination: No Hx Influenza Vaccination: No Hx Pneumococcal Vaccination: No - Home Medications Home Medications: Ambulatory Orders Medication Instructions Recorded Benztropine [Cogentin] 1 mg PO BID tab 09/25/17 Divalproex [Depakote DR] 500 mg PO BID tcp 09/25/17 hydrOXYzine HCl [Atarax] 25 mg PO Q6 PRN tab 09/25/17 traZODone [Desyrel] 100 mg PO HS tab 09/25/17 risperiDONE [RisperDAL Tab] 4 mg PO QPM #30 tab 02/21/18 Calamine/Zinc Oxide [Calamine 1 applic TOP BID PRN #1 bottle 04/01/18 Lotion] DiphenhydrAMINE [Benadryl] 50 mg PO Q6 PRN #30 cap 04/01/18 Famotidine [Pepcid] 40 mg PO DAILY #5 tablet 04/01/18 Methylprednisolone [Medrol Dose 4 mg PO DAILY #21 mg 04/01/18 Pack (21 tabs)] Calamine/Zinc Oxide [Calamine 1 applic TOP BID PRN #2 bottle 04/07/18 Lotion] Hydrocortisone 1% Cream [Cortizone 1 appl TP BID #60 g 04/12/18 1% Cream] Permethrin 5% [Permethrin 5% Cream] 60 gm EXT ONCE #1 tube 04/15/18 Permethrin 1% Kit [Nix Complete 59 ml TOP ONCE #1 bottle 05/18/18 Lice Elimination Kit 1%] - Allergies Allergies/Adverse Reactions: Allergies Allergy/AdvReac Type Severity Reaction Status Date / Time No Known Allergies Allergy Verified 05/18/18 16:11 ALONDRA Risk Score for UA/NSTEMI - ALONDRA Risk Score Age > 64: NO 3 or more CAD Risk Factors: NO Known CAD (Stenosis greater than 50%): NO Aspirin use in past 7 days: NO Severe Angina: NO EKG ST changes greater than 0.5mm: NO Positive Cardiac Marker: NO ALONDRA Score: 0 Risk %: 5% Review of Systems ROS Statement: Except As Marked, All Systems Reviewed And Found Negative Cardiovascular: Positive for: Chest Pain Physical Exam - Reviewed Nursing Documentation Reviewed: Yes Vital Signs Reviewed: Yes - Physical Exam Appears: Positive for: Well, Non-toxic, No Acute Distress Head Exam: Positive for: ATRAUMATIC, NORMAL INSPECTION, NORMOCEPHALIC Skin: Positive for: Normal Color Eye Exam: Positive for: Normal appearance ENT: Positive for: Normal ENT Inspection Cardiovascular/Chest: Positive for: Regular Rate, Rhythm Respiratory: Positive for: Normal Breath Sounds Gastrointestinal/Abdominal: Positive for: Normal Exam Back: Positive for: Normal Inspection Extremity: Positive for: Normal ROM Neurologic/Psych: Positive for: Alert, Oriented (x3) - ECG ECG: Positive for: Viewed By Me (reviewed by ED attending) ECG Rhythm: Positive for: Sinus Rhythm - Progress ED Course And Treament: Patient had full workup less than 12 hours ago, including labs, ekg, CT chest angio. EKG unchanged. Troponin negative Patient educated on findings, discharged with instructions to follow up PMD within 2-3 days Return precautions given Disposition - Clinical Impression Clinical Impression: Lice, Chest pain - Patient ED Disposition Is Patient to be Admitted: No Counseled Patient/Family Regarding: Studies Performed, Diagnosis, Need For Followup - Disposition Disposition: Routine/Home Disposition Time: 03:30 Condition: GOOD Instructions: Lice, Chest Pain
[2018-05-19 05:29] VITALS: RESP 16
[2018-05-19 06:11] VITALS: BP 132/87; PULSE 76; TEMP 97.9; O2SAT 98
--- NOTE | 2018-05-19 08:51 | CARD ---
APPROVED REPORT Date of service: 05/19/2018 EKG Measurement Heart [id number] CO 168P1 [id number] <Conclusion> Normal sinus rhythm Minimal voltage criteria for LVH, may be normal variant Borderline ECG
== END 2018-05-19 06:14 | disposition home or self-care (01) ==
LOC: H.ER 00:56
DX: R07.89 Other chest pain (principal); B85.2 Pediculosis, unspecified; F20.9 Schizophrenia, unspecified; I10 Essential (primary) hypertension

== ENCOUNTER 2018-06-03 17:07 | Emergency (ER) | payer MEDICAID ==
[2018-06-03 17:07] VITALS: BMI 30.5
[2018-06-03 17:25] VITALS: BP 164/98; PULSE 64; RESP 18; TEMP 98.9; O2SAT 100
--- NOTE | 2018-06-03 18:55 | ED PDOC ---
HPI: General Adult Time Seen by Provider: 06/03/18 17:31 Chief Complaint (Nursing): Upper Extremity Problem/Injury Chief Complaint (Provider): Right shoulder pain History Per: Patient History/Exam Limitations: no limitations Additional Complaint(s): 37yo male with history of schizophrenia (per records, patient does not admit), comes in complaining of right shoulder pain for the past 2-3 days. Patient states he has a history of right upper back/right shoulder discomfort, which is present intermittently. He states the symptoms returned 3 days ago and worsened today, with the pain reported as 6/10. He denies any trauma or injury to the site, and states the pain is generalized, with no worsening factors. Of note, patient also reports multiple excoriation to his bilateral upper arms and states the rash is intermittent and that the lotions prescribed to him previously have not helped. No additional complaints. PMD: None Past Medical History Reviewed: Historical Data, Nursing Documentation, Vital Signs Vital Signs: Last Vital Signs Temp 98.9 F 06/03/18 17:24 Pulse 64 06/03/18 17:24 Resp 18 06/03/18 17:24 BP 164/98 H 06/03/18 17:24 Pulse Ox 100 06/03/18 17:24 - Medical History PMH: HTN, Schizophrenia Denies: Diabetes, Hepatitis, HIV, Chronic Kidney Disease, Seizures, Sexually Transmitted Disease - Surgical History Surgical History: No Surg Hx - Family History Family History: States: Unknown Family Hx Denies: Stroke, [place], CAD - Immunization History Hx Tetanus Toxoid Vaccination: No Hx Influenza Vaccination: No Hx Pneumococcal Vaccination: No - Home Medications Home Medications: Ambulatory Orders Medication Instructions Recorded Benztropine [Cogentin] 1 mg PO BID tab 09/25/17 Divalproex [Depakote DR] 500 mg PO BID tcp 09/25/17 hydrOXYzine HCl [Atarax] 25 mg PO Q6 PRN tab 09/25/17 traZODone [Desyrel] 100 mg PO HS tab 09/25/17 risperiDONE [RisperDAL Tab] 4 mg PO QPM #30 tab 02/21/18 Calamine/Zinc Oxide [Calamine 1 applic TOP BID PRN #1 bottle 04/01/18 Lotion] DiphenhydrAMINE [Benadryl] 50 mg PO Q6 PRN #30 cap 04/01/18 Famotidine [Pepcid] 40 mg PO DAILY #5 tablet 04/01/18 Methylprednisolone [Medrol Dose 4 mg PO DAILY #21 mg 04/01/18 Pack (21 tabs)] Calamine/Zinc Oxide [Calamine 1 applic TOP BID PRN #2 bottle 04/07/18 Lotion] Hydrocortisone 1% Cream [Cortizone 1 appl TP BID #60 g 04/12/18 1% Cream] Permethrin 5% [Permethrin 5% Cream] 60 gm EXT ONCE #1 tube 04/15/18 Permethrin 1% Kit [Nix Complete 59 ml TOP ONCE #1 bottle 05/18/18 Lice Elimination Kit 1%] Hydroxyzine HCl 50 mg PO Q6 PRN 5 Days tablet 06/03/18 Ibuprofen [Motrin Tab] 600 mg PO Q6 PRN 7 Days tab 06/03/18 - Allergies Allergies/Adverse Reactions: Allergies Allergy/AdvReac Type Severity Reaction Status Date / Time No Known Allergies Allergy Verified 06/03/18 17:23 Review of Systems Musculoskeletal: Positive for: Back Pain (right upper back) Skin: Positive for: Rash (bilateral upper arm/shoulder area) Neurological: Negative for: Weakness, Numbness Physical Exam - Reviewed Nursing Documentation Reviewed: Yes Vital Signs Reviewed: Yes - Physical Exam Appears: Positive for: No Acute Distress Head Exam: Positive for: ATRAUMATIC, NORMAL INSPECTION, NORMOCEPHALIC Skin: Positive for: Warm, Rash (bilateral upper arms with multiple areas of excoriation; no pustules, papules, or vesicles noted. minimal associated erythema. ) Eye Exam: Positive for: EOMI, PERRL Cardiovascular/Chest: Positive for: Regular Rate, Rhythm Respiratory: Positive for: Normal Breath Sounds Pulses-Radial (L): 2+ Pulses-Radial (R): 1+ Back: Positive for: Other (mild tenderness to right upper back). Negative for: L CVA Tenderness, R CVA Tenderness, Vertebral Tenderness, Muscle Spasm Extremity: Positive for: Normal ROM (FROM bilateral shoulders including flexion, extension, abduction and adduction. ), Capillary Refill (< 2 seconds), Other (no point tenderness to humeral head; no erythema, swelling, ecchymosis or deformity noted.). Negative for: Deformity Neurological/Psych: Positive for: Alert, Oriented (x 3), Gait (steady) - ECG O2 Sat by Pulse Oximetry: 100 (RA) Pulse Ox Interpretation: Normal Medical Decision Making Medical Decision Makinyo male with musculoskeletal pain plan: -- Motrin 600mg PO 1845 Patient reports improvement and requesting to leave ER. Informed patient to f/u with hose inspector and patcher for further evaluation of rash. Patient given prescription for hydroxizine to use as needed for itching. Scribe Attestation: Documented by Sena Tolbert, acting as a scribe for VIDAL Guillen. Provider Scribe Attestation: All medical record entries made by the Scribe were at my direction and personally dictated by me. I have reviewed the chart and agree that the record accurately reflects my personal performance of the history, physical exam, medical decision making, and the department course for this patient. I have also personally directed, reviewed, and agree with the discharge instructions and disposition. Disposition - Clinical Impression Clinical Impression: Skin rash, Shoulder pain - Disposition Referrals: [facility] [Outside] Disposition: Routine/Home Disposition Time: 18:45 Condition: STABLE Additional Instructions: Use Ibuprofen or Tylenol for shoulder discomfort. Use Calamine lotion for skin rash and Hydroxyzine for itch. Prescriptions: Hydroxyzine HCl 50 mg PO Q6 PRN 5 Days tablet PRN Reason: Itching / Pruritus Ibuprofen [Motrin Tab] 600 mg PO Q6 PRN 7 Days tab PRN Reason: Pain, Moderate (4-7) Instructions: Skin Rash (DC), Shoulder Pain (DC) Forms: [employer] (Albanian) Print Language: ANDORRAN
== END 2018-06-03 18:43 | disposition home or self-care (01) ==
LOC: H.ER 17:07
DX: R21 Rash and other nonspecific skin eruption (principal); M25.511 Pain in right shoulder

== ENCOUNTER 2018-06-05 15:07 | Emergency (ER) | payer MEDICAID ==
[2018-06-05 15:08] VITALS: BMI 30.5
--- NOTE | 2018-06-05 15:53 | ED PDOC ---
HPI: SOB/CHF/COPD Time Seen by Provider: 06/05/18 15:48 Chief Complaint (Nursing): Shortness Of Breath Chief Complaint (Provider): sob History Per: Patient (37 y/o male h/o Schizophrenia here with SOB today.Denies any chest pain but notes palpitations. No SI/HI. Is non compliant of medications b/c he feels "he doesn't need it.") Past Medical History Reviewed: Historical Data, Nursing Documentation, Vital Signs Vital Signs: Last Vital Signs Temp 98.6 F 06/05/18 15:12 Pulse 94 H 06/05/18 15:12 Resp 16 06/05/18 15:12 BP 161/89 H 06/05/18 15:12 Pulse Ox 100 06/05/18 15:12 - Medical History PMH: HTN, Schizophrenia Denies: Diabetes, Hepatitis, HIV, Chronic Kidney Disease, Seizures, Sexually Transmitted Disease - Family History Family History: States: Unknown Family Hx Denies: Stroke, [place], CAD - Immunization History Hx Tetanus Toxoid Vaccination: No Hx Influenza Vaccination: No Hx Pneumococcal Vaccination: No - Home Medications Home Medications: Ambulatory Orders Medication Instructions Recorded Benztropine [Cogentin] 1 mg PO BID tab 09/25/17 Divalproex [Depakote DR] 500 mg PO BID tcp 09/25/17 hydrOXYzine HCl [Atarax] 25 mg PO Q6 PRN tab 09/25/17 traZODone [Desyrel] 100 mg PO HS tab 09/25/17 risperiDONE [RisperDAL Tab] 4 mg PO QPM #30 tab 02/21/18 Calamine/Zinc Oxide [Calamine 1 applic TOP BID PRN #1 bottle 04/01/18 Lotion] DiphenhydrAMINE [Benadryl] 50 mg PO Q6 PRN #30 cap 04/01/18 Famotidine [Pepcid] 40 mg PO DAILY #5 tablet 04/01/18 Methylprednisolone [Medrol Dose 4 mg PO DAILY #21 mg 04/01/18 Pack (21 tabs)] Calamine/Zinc Oxide [Calamine 1 applic TOP BID PRN #2 bottle 04/07/18 Lotion] Hydrocortisone 1% Cream [Cortizone 1 appl TP BID #60 g 04/12/18 1% Cream] Permethrin 5% [Permethrin 5% Cream] 60 gm EXT ONCE #1 tube 04/15/18 Permethrin 1% Kit [Nix Complete 59 ml TOP ONCE #1 bottle 05/18/18 Lice Elimination Kit 1%] Hydroxyzine HCl 50 mg PO Q6 PRN 5 Days tablet 06/03/18 Ibuprofen [Motrin Tab] 600 mg PO Q6 PRN 7 Days tab 06/03/18 - Allergies Allergies/Adverse Reactions: Allergies Allergy/AdvReac Type Severity Reaction Status Date / Time No Known Allergies Allergy Verified 06/03/18 17:23 Review of Systems ROS Statement: Except As Marked, All Systems Reviewed And Found Negative Physical Exam - Reviewed Nursing Documentation Reviewed: Yes Vital Signs Reviewed: Yes - Physical Exam Appears: Positive for: Well, Non-toxic, No Acute Distress Head Exam: Positive for: ATRAUMATIC, NORMAL INSPECTION, NORMOCEPHALIC Skin: Positive for: Normal Color, Warm, DRY Eye Exam: Positive for: EOMI, Normal appearance, PERRL ENT: Positive for: Normal ENT Inspection Neck: Positive for: Normal, Painless ROM Cardiovascular/Chest: Positive for: Regular Rate, Rhythm Respiratory: Positive for: CNT, Normal Breath Sounds Gastrointestinal/Abdominal: Positive for: Normal Exam, Soft Back: Positive for: Normal Inspection Extremity: Positive for: Normal ROM Neurological/Psych: Positive for: Awake, Alert, Normal Tone - Laboratory Results Result Diagrams: 06/05/18 16:11 06/05/18 16:11 - ECG O2 Sat by Pulse Oximetry: 100 - Progress ED Course And Treament: Lice noted. patient showered and given permethrin 5% cream thorughout. Disposition - Clinical Impression Clinical Impression: Lice - Patient ED Disposition Is Patient to be Admitted: No - Disposition Referrals: [facility] [Outside] Disposition: Routine/Home Disposition Time: 17:48 Condition: FAIR Instructions: Lice, Shortness of Breath (Dyspnea) (DC)
[2018-06-05 16:15] LABS: HEMOGLOBIN 14.8 g/dL (12.0-18.0); MEAN CELL VOLUME 86.2 fl (80.0-94.0); MEAN CORPUSCULAR HEMOGLOBIN 29.2 pg (27.0-31.0); MEAN CORPUSCULAR HGB CONC 33.9 g/dL (33.0-37.0); MEAN PLATELET VOLUME 8.1 fl (7.2-11.7); RBC 5.06 Mil/uL (4.40-5.90); RED CELL DISTRIBUTION WIDTH 13.9 % (11.5-14.5); WHITE BLOOD COUNT 4.1 K/uL (4.8-10.8)
[2018-06-05] MEDS ORDERED: Permethrin 5% CREAM TOP ONE (16:15)
[2018-06-05 16:16] LABS: BASO # 0.1 K/uL (0.0-0.2); BASO % 1.2 % (0.0-2.0); EOS # 0.2 K/uL (0.0-0.7); EOS % 4.7 % (0.0-4.0); LYMPH # 1.5 K/uL (1.0-4.3); LYMPH % 36.9 % (20.0-40.0); MONO # 0.3 K/uL (0.0-0.8); MONO % 8.2 % (0.0-10.0); NRBC % 0.1 % (0.0-0.0)
[2018-06-05 16:35] VITALS: RESP 18
[2018-06-05 16:43] LABS: ALB/GLOB RATIO 1.3 (1.0-2.1); ALBUMIN 4.7 g/dL (3.5-5.0); ALT/SGPT 28 U/L (21-72); AST/SGOT 28 U/L (17-59); BLOOD UREA NITROGEN 11 mg/dl (9-20); GFR NON-AFRICAN AMERICAN > 60
[2018-06-05 18:08] LABS: BARBITURATES, UR NEGATIVE (NEGATIVE); BENZODIAZEPINES, UR NEGATIVE (NEGATIVE); OPIATES, UR NEGATIVE (NEGATIVE); PHENCYCLIDINE, UR NEGATIVE (NEGATIVE)
[2018-06-05 18:10] VITALS: BP 145/90; PULSE 90; TEMP 98.5; O2SAT 96
--- NOTE | 2018-06-06 08:26 | RAD ---
Date of service: 06/05/2018 HISTORY: sob COMPARISON: Chest radiographs 05/18/2018. TECHNIQUE: Chest PA and lateral FINDINGS: LUNGS: No active pulmonary disease. PLEURA: No significant pleural effusion identified. No pneumothorax apparent. CARDIOVASCULAR: No aortic atherosclerotic calcification present. Normal cardiac size. No pulmonary vascular congestion. OSSEOUS STRUCTURES: No significant abnormalities. VISUALIZED UPPER ABDOMEN: Normal. OTHER FINDINGS: None. IMPRESSION: No interval acute cardiopulmonary disease appreciated.
--- NOTE | 2018-06-06 17:40 | CARD ---
APPROVED REPORT Date of service: 06/05/2018 EKG Measurement Heart [id number] 160P64 [id number] <Conclusion> Normal sinus rhythm Normal ECG
== END 2018-06-05 18:25 | disposition home or self-care (01) ==
LOC: H.ER 15:07
DX: R06.02 Shortness of breath (principal); B85.2 Pediculosis, unspecified; Z91.19 Patient's noncompliance with other medical treatment and regimen; F20.9 Schizophrenia, unspecified; I10 Essential (primary) hypertension; J44.9 Chronic obstructive pulmonary disease, unspecified

== ENCOUNTER 2018-06-13 16:17 | Emergency (ER) | payer MEDICAID ==
[2018-06-13 16:30] VITALS: BMI 30.4
[2018-06-13] MEDS ORDERED: Sodium Chloride 0.9% 1,000 ML IV STA (17:10)
--- NOTE | 2018-06-13 17:22 | ED PDOC ---
HPI: SOB/CHF/COPD Time Seen by Provider: 06/13/18 16:52 Chief Complaint (Nursing): Shortness Of Breath Chief Complaint (Provider): shortness of breath History Per: Patient History/Exam Limitations: no limitations Onset/Duration Of Symptoms: Days (2 months), Intermittent Episodes (started about 2 hours ago today) Current Symptoms Are (Timing): Still Present Quality: "Pain" Associated Symptoms: Chest Pain, Heart Racing, Dizziness, Light-headedness. denies: Fever, Chills, Bloody Cough, Leg/Calf Pain Additional Complaint(s): 37yo with h/o schizophrenia and homelessness reporting shortness of breath and feeling faint for 2 hours, similar to previous episodes. Seen in this ER multiple times for the same symptoms. PMD none but has been to [facility] in the past. Past Medical History Reviewed: Historical Data, Nursing Documentation, Vital Signs Vital Signs: Last Vital Signs Temp 98.8 F 06/13/18 16:30 Pulse 111 H 06/13/18 16:30 Resp 18 06/13/18 16:30 BP 171/97 H 06/13/18 16:30 Pulse Ox 100 06/13/18 16:30 - Medical History PMH: HTN, Schizophrenia Denies: Diabetes, Hepatitis, HIV, Chronic Kidney Disease, Seizures, Sexually Transmitted Disease - Family History Family History: States: Unknown Family Hx Denies: Stroke, [place], CAD - Social History Current smoker - smoking cessation education provided: No Alcohol: None Drugs: Denies - Immunization History Hx Tetanus Toxoid Vaccination: No Hx Influenza Vaccination: No Hx Pneumococcal Vaccination: No - Home Medications Home Medications: Ambulatory Orders Medication Instructions Recorded Benztropine [Cogentin] 1 mg PO BID tab 09/25/17 Divalproex [Depakote DR] 500 mg PO BID tcp 09/25/17 hydrOXYzine HCl [Atarax] 25 mg PO Q6 PRN tab 09/25/17 traZODone [Desyrel] 100 mg PO HS tab 09/25/17 risperiDONE [RisperDAL Tab] 4 mg PO QPM #30 tab 02/21/18 Calamine/Zinc Oxide [Calamine 1 applic TOP BID PRN #1 bottle 04/01/18 Lotion] DiphenhydrAMINE [Benadryl] 50 mg PO Q6 PRN #30 cap 04/01/18 Famotidine [Pepcid] 40 mg PO DAILY #5 tablet 04/01/18 Methylprednisolone [Medrol Dose 4 mg PO DAILY #21 mg 04/01/18 Pack (21 tabs)] Calamine/Zinc Oxide [Calamine 1 applic TOP BID PRN #2 bottle 04/07/18 Lotion] Hydrocortisone 1% Cream [Cortizone 1 appl TP BID #60 g 04/12/18 1% Cream] Permethrin 5% [Permethrin 5% Cream] 60 gm EXT ONCE #1 tube 04/15/18 Permethrin 1% Kit [Nix Complete 59 ml TOP ONCE #1 bottle 05/18/18 Lice Elimination Kit 1%] Hydroxyzine HCl 50 mg PO Q6 PRN 5 Days tablet 06/03/18 Ibuprofen [Motrin Tab] 600 mg PO Q6 PRN 7 Days tab 06/03/18 - Allergies Allergies/Adverse Reactions: Allergies Allergy/AdvReac Type Severity Reaction Status Date / Time No Known Allergies Allergy Verified 06/13/18 21:00 Review of Systems ROS Statement: Except As Marked, All Systems Reviewed And Found Negative (and as per hpi) Cardiovascular: Positive for: Chest Pain, Palpitations, Light Headedness Respiratory: Positive for: Shortness of Breath, SOB with Exertion. Negative for: Cough, Sputum, Wheezing Physical Exam - Reviewed Nursing Documentation Reviewed: Yes Vital Signs Reviewed: Yes - Physical Exam Appears: Positive for: Non-toxic, No Acute Distress Head Exam: Positive for: ATRAUMATIC, NORMOCEPHALIC Skin: Positive for: Warm, Dry Eye Exam: Positive for: EOMI, PERRL ENT: Negative for: Pharyngeal Erythema, Tonsillar Exudate Neck: Positive for: Painless ROM, Supple Cardiovascular/Chest: Positive for: Regular Rate, Rhythm. Negative for: Edema, Murmur Respiratory: Positive for: Normal Breath Sounds. Negative for: Accessory Muscle Use, Wheezing, Respiratory Distress Gastrointestinal/Abdominal: Positive for: Soft. Negative for: Tenderness Back: Positive for: Normal Inspection. Negative for: Decreased ROM Extremity: Positive for: Normal ROM. Negative for: Pedal Edema, Calf Tenderness Lymphatic: Negative for: Adenopathy Neurological/Psych: Positive for: Awake, Alert, Mood/Affect (anxious mood and affect). Negative for: Motor/Sensory Deficits - ECG ECG: Positive for: Interpreted By Me ECG Rhythm: Positive for: Normal QRS, Normal ST Segment, Sinus Rhythm O2 Sat by Pulse Oximetry: 100 Pulse Ox Interpretation: Normal - Radiology X-Ray: Interpreted by Me X-Ray Interpretation: No Acute Disease Disposition - Clinical Impression Clinical Impression: Chest pain - Disposition Referrals: [facility] [Outside] Disposition: Routine/Home Disposition Time: 18:47 Condition: STABLE Instructions: Chest Pain (DC), Stress
[2018-06-13 19:04] VITALS: BP 132/74; PULSE 87; RESP 19; TEMP 98
[2018-06-13 23:36] VITALS: O2SAT 100
--- NOTE | 2018-06-14 08:16 | RAD ---
Date of service: 06/13/2018 HISTORY: sob COMPARISON: Chest radiographs 06/05/2018. TECHNIQUE: Chest PA and lateral FINDINGS: LUNGS: No active pulmonary disease. PLEURA: No significant pleural effusion identified. No pneumothorax apparent. CARDIOVASCULAR: No aortic atherosclerotic calcification present. Normal cardiac size. No pulmonary vascular congestion. OSSEOUS STRUCTURES: No significant abnormalities. VISUALIZED UPPER ABDOMEN: Normal. OTHER FINDINGS: None. IMPRESSION: No interval acute cardiopulmonary disease appreciated.
--- NOTE | 2018-06-14 21:23 | CARD ---
APPROVED REPORT Date of service: 06/13/2018 EKG Measurement Heart [id number] <Conclusion> Normal sinus rhythm Normal ECG
== END 2018-06-13 19:04 | disposition home or self-care (01) ==
LOC: H.ER 16:17
DX: R07.89 Other chest pain (principal); F20.9 Schizophrenia, unspecified; I10 Essential (primary) hypertension

== ENCOUNTER 2018-06-14 03:57 | Emergency (ER) | payer MEDICAID ==
[2018-06-14 03:57] VITALS: BMI 30.4
[2018-06-14 04:59] VITALS: BP 132/89; PULSE 87; RESP 16; TEMP 98.7; O2SAT 99
--- NOTE | 2018-06-14 06:10 | ED PDOC ---
HPI: General Adult Time Seen by Provider: 06/14/18 04:00 Chief Complaint (Nursing): Pain, Chronic Chief Complaint (Provider): Pain, Chronic History Per: Patient History/Exam Limitations: no limitations Additional Complaint(s): 37 y/o male with history of schizophrenia presents to the ED complaining of feeling cold and having body aches. Patient was at [facility] earlier today. Patient states that he normally goes to the [facility] buts there was too much smoke so he decided to come here instead. Patient states that after sitting in the warmth of the ER symptoms started to improve. Past Medical History Reviewed: Historical Data, Nursing Documentation, Vital Signs Vital Signs: Last Vital Signs Temp 98.7 F 06/14/18 04:55 Pulse 87 06/14/18 04:55 Resp 16 06/14/18 04:55 BP 132/89 06/14/18 04:55 Pulse Ox 99 06/14/18 04:55 - Medical History PMH: HTN, Schizophrenia Denies: Diabetes, Hepatitis, HIV, Chronic Kidney Disease, Seizures, Sexually Transmitted Disease - Family History Family History: States: Unknown Family Hx Denies: Stroke, DC, CAD - Immunization History Hx Tetanus Toxoid Vaccination: No Hx Influenza Vaccination: No Hx Pneumococcal Vaccination: No - Home Medications Home Medications: Ambulatory Orders Medication Instructions Recorded Benztropine [Cogentin] 1 mg PO BID tab 09/25/17 Divalproex [Depakote DR] 500 mg PO BID tcp 09/25/17 hydrOXYzine HCl [Atarax] 25 mg PO Q6 PRN tab 09/25/17 traZODone [Desyrel] 100 mg PO HS tab 09/25/17 risperiDONE [RisperDAL Tab] 4 mg PO QPM #30 tab 02/21/18 Calamine/Zinc Oxide [Calamine 1 applic TOP BID PRN #1 bottle 04/01/18 Lotion] DiphenhydrAMINE [Benadryl] 50 mg PO Q6 PRN #30 cap 04/01/18 Famotidine [Pepcid] 40 mg PO DAILY #5 tablet 04/01/18 Methylprednisolone [Medrol Dose 4 mg PO DAILY #21 mg 04/01/18 Pack (21 tabs)] Calamine/Zinc Oxide [Calamine 1 applic TOP BID PRN #2 bottle 04/07/18 Lotion] Hydrocortisone 1% Cream [Cortizone 1 appl TP BID #60 g 04/12/18 1% Cream] Permethrin 5% [Permethrin 5% Cream] 60 gm EXT ONCE #1 tube 04/15/18 Permethrin 1% Kit [Nix Complete 59 ml TOP ONCE #1 bottle 05/18/18 Lice Elimination Kit 1%] Hydroxyzine HCl 50 mg PO Q6 PRN 5 Days tablet 06/03/18 Ibuprofen [Motrin Tab] 600 mg PO Q6 PRN 7 Days tab 06/03/18 Acetaminophen [Pain Reliever] 500 mg PO Q4 #30 tablet 06/14/18 - Allergies Allergies/Adverse Reactions: Allergies Allergy/AdvReac Type Severity Reaction Status Date / Time No Known Allergies Allergy Verified 06/13/18 21:00 Review of Systems ROS Statement: Except As Marked, All Systems Reviewed And Found Negative Constitutional: Positive for: Chills, Malaise (body aches) Physical Exam - Reviewed Nursing Documentation Reviewed: Yes Vital Signs Reviewed: Yes - Physical Exam Appears: Positive for: Well, Non-toxic, No Acute Distress Head Exam: Positive for: ATRAUMATIC, NORMAL INSPECTION, NORMOCEPHALIC Skin: Positive for: Normal Color, Warm, DRY Eye Exam: Positive for: EOMI, Normal appearance, PERRL ENT: Positive for: Normal ENT Inspection Neck: Positive for: Normal, Painless ROM Cardiovascular/Chest: Positive for: Regular Rate, Rhythm. Negative for: Murmur Respiratory: Positive for: Normal Breath Sounds. Negative for: Respiratory Distress Gastrointestinal/Abdominal: Positive for: Normal Exam, Soft. Negative for: Tenderness Back: Positive for: Normal Inspection Extremity: Positive for: Normal ROM. Negative for: Pedal Edema, Deformity Neurological/Psych: Positive for: Awake, Alert, Normal Tone. Negative for: Motor/Sensory Deficits - ECG O2 Sat by Pulse Oximetry: 99 (RA) Pulse Ox Interpretation: Normal Medical Decision Making Medical Decision Making: Time: A/P: 37 y/o with myalgia from cold exposure. Patient is requesting Tylenol prescription; states he doesn't want to take Tylenol now. 04:52 Patient reports improvement of symptoms and he will be discharged home. Return parameters discussed. Diagnosis is total body pain. Patient advised to follow up with [facility]. Scribe Attestation: Documented by Naun Bey, acting as a scribe Ellen Swann MD. Provider Scribe Attestation: All medical record entries made by the Scribe were at my direction and personally dictated by me. I have reviewed the chart and agree that the record accurately reflects my personal performance of the history, physical exam, medical decision making, and the department course for this patient. I have also personally directed, reviewed, and agree with the discharge instructions and disposition. Disposition - Clinical Impression Clinical Impression: Total body pain - Patient ED Disposition Is Patient to be Admitted: No - Disposition Referrals: [facility] [Outside] Disposition: Routine/Home Disposition Time: 04:52 Condition: IMPROVED Additional Instructions: ROMEL PAREDES, thank you for letting us take care of you today. Your provider was Ramin Swann MD and you were treated for BODY PAIN. The emergency medical care you received today was directed at your acute symptoms. If you were prescribed any medication, please fill it and take as directed. It may take several days for your symptoms to resolve. Return to the Emergency Department if your symptoms worsen, do not improve, or if you have any other problems. Please contact your doctor or call one of the physicians/clinics you have been referred to that are listed on the Patient Visit Information form that is included in your discharge packet. Bring any paperwork you were given at dischar ge with you along with any medications you are taking to your follow up visit. Our treatment cannot replace ongoing medical care by a primary care provider outside of the emergency department. Thank you for allowing the [facility] team to be part of your care today. If you had an X-Ray or CT scan: A Radiologist will review the ED reading if any change in treatment is needed we will contact you. If you had a blood, urine, or wound culture: It will take several days for the results, if any change in treatment is needed we will contact you. If you had an STI test: It will take 48 hours for the results. Please call after 1 week if you have not heard back. Prescriptions: Acetaminophen [Pain Reliever] 500 mg PO Q4 #30 tablet Instructions: Muscle and Bone Pain (DC)
== END 2018-06-14 05:30 | disposition home or self-care (01) ==
LOC: H.ER 03:57
DX: M79.10 Myalgia, unspecified site (principal); G89.29 Other chronic pain; I10 Essential (primary) hypertension; Z86.59 Personal history of other mental and behavioral disorders; X31.XXXA Exposure to excessive natural cold, initial encounter; T69.9XXA Effect of reduced temperature, unspecified, initial encounter

== ENCOUNTER 2018-06-28 01:53 | Emergency (ER) | payer MEDICAID ==
[2018-06-28 01:53] VITALS: BMI 30.4
--- NOTE | 2018-06-28 03:57 | ED PDOC ---
HPI: Back Time Seen by Provider: 06/28/18 02:30 Chief Complaint (Nursing): Back Pain Chief Complaint (Provider): back pain History Per: Patient Additional Complaint(s): 37 y/o male presents for evaluation of upper back and shoulder pain. Patient reports pain has actually improved since being in the ED, requesting to rest for a little longer and would like a tylenol rx upon discharge. Patient well known to ED for bed-seeking behavior. Patient denies trauma, numbness/weakness of extremities, limitation of movement. Past Medical History Reviewed: Historical Data, Nursing Documentation, Vital Signs Vital Signs: Last Vital Signs Temp 97.9 F 06/28/18 02:05 Pulse 75 06/28/18 02:05 Resp 19 06/28/18 02:05 BP 136/93 H 06/28/18 02:05 Pulse Ox 100 06/28/18 02:05 - Medical History PMH: HTN, Schizophrenia Denies: Diabetes, Hepatitis, HIV, Chronic Kidney Disease, Seizures, Sexually Transmitted Disease - Family History Family History: States: Unknown Family Hx Denies: Stroke, PR, CAD - Immunization History Hx Tetanus Toxoid Vaccination: No Hx Influenza Vaccination: No Hx Pneumococcal Vaccination: No - Home Medications Home Medications: Ambulatory Orders Medication Instructions Recorded Benztropine [Cogentin] 1 mg PO BID tab 09/25/17 Divalproex [Depakote DR] 500 mg PO BID tcp 09/25/17 hydrOXYzine HCl [Atarax] 25 mg PO Q6 PRN tab 09/25/17 traZODone [Desyrel] 100 mg PO HS tab 09/25/17 risperiDONE [RisperDAL Tab] 4 mg PO QPM #30 tab 02/21/18 Calamine/Zinc Oxide [Calamine 1 applic TOP BID PRN #1 bottle 04/01/18 Lotion] DiphenhydrAMINE [Benadryl] 50 mg PO Q6 PRN #30 cap 04/01/18 Famotidine [Pepcid] 40 mg PO DAILY #5 tablet 04/01/18 Methylprednisolone [Medrol Dose 4 mg PO DAILY #21 mg 04/01/18 Pack (21 tabs)] Calamine/Zinc Oxide [Calamine 1 applic TOP BID PRN #2 bottle 04/07/18 Lotion] Hydrocortisone 1% Cream [Cortizone 1 appl TP BID #60 g 04/12/18 1% Cream] Permethrin 5% [Permethrin 5% Cream] 60 gm EXT ONCE #1 tube 04/15/18 Permethrin 1% Kit [Nix Complete 59 ml TOP ONCE #1 bottle 05/18/18 Lice Elimination Kit 1%] Hydroxyzine HCl 50 mg PO Q6 PRN 5 Days tablet 06/03/18 Ibuprofen [Motrin Tab] 600 mg PO Q6 PRN 7 Days tab 06/03/18 Acetaminophen [Pain Reliever] 500 mg PO Q4 #30 tablet 06/14/18 Acetaminophen [Tylenol Extra 500 mg PO Q4 PRN #30 tablet 06/28/18 Strength] - Allergies Allergies/Adverse Reactions: Allergies Allergy/AdvReac Type Severity Reaction Status Date / Time No Known Allergies Allergy Verified 06/13/18 21:00 Review of Systems ROS Statement: Except As Marked, All Systems Reviewed And Found Negative Physical Exam - Reviewed Nursing Documentation Reviewed: Yes Vital Signs Reviewed: Yes - Physical Exam Appears: Positive for: Well, Non-toxic, No Acute Distress Head Exam: Positive for: ATRAUMATIC, NORMAL INSPECTION, NORMOCEPHALIC Skin: Positive for: Normal Color Cardiovascular/Chest: Positive for: Regular Rate, Rhythm Respiratory: Positive for: Normal Breath Sounds Back: Positive for: Normal Inspection Extremity: Positive for: Normal ROM Neurological/Psych: Positive for: Awake, Alert, Oriented (x3) - ECG O2 Sat by Pulse Oximetry: 100 Disposition - Clinical Impression Clinical Impression: Shoulder pain, Back pain - Patient ED Disposition Is Patient to be Admitted: No Counseled Patient/Family Regarding: Diagnosis, Need For Followup, Rx Given - Disposition Disposition: Routine/Home Disposition Time: 03:56 Condition: IMPROVED Prescriptions: Acetaminophen [Tylenol Extra Strength] 500 mg PO Q4 PRN #30 tablet PRN Reason: Pain, Moderate (4-7) Instructions: Upper Back Pain, Joint Pain
[2018-06-28 05:47] VITALS: BP 152/86; PULSE 77; RESP 15; TEMP 98.5; O2SAT 97
== END 2018-06-28 05:47 | disposition home or self-care (01) ==
LOC: H.ER 01:53
DX: M54.9 Dorsalgia, unspecified (principal); M25.519 Pain in unspecified shoulder; F20.9 Schizophrenia, unspecified; I10 Essential (primary) hypertension

== ENCOUNTER 2018-06-28 14:23 | Emergency (ER) | payer MEDICAID ==
[2018-06-28 14:23] VITALS: BMI 30.4
[2018-06-28 15:12] VITALS: TEMP 98.8; O2SAT 99
[2018-06-28] MEDS ORDERED: Permethrin 5% CREAM TOP STA (16:21)
--- NOTE | 2018-06-28 16:42 | ED PDOC ---
HPI: General Adult Time Seen by Provider: 06/28/18 15:12 Chief Complaint (Nursing): Dizziness/Lightheaded History Per: Patient Additional Complaint(s): Pt. states earlier this afternoon he was sitting down when he developed dizziness. Pt. describes the dizziness as the room spinning and a feeling of imbalance. Also reports feeling pressure in his head that occurred at the same time as the dizziness. Has had similar symptoms in the past but has never been this severe. Denies trauma, weakness (contrary to triage note), headache, chest pain, palpitations, N/V/D, abd pain, SOB, tinnitus, hearing changes. Against Medical Advice - AMA Patient Left Against Medical Advice: The patient declines testing and treatment and wishes to leave the Emergency Department. This action is against my medical advice. This decision was made with informed refusal. The patient was told that testing is necessary. Explanation of the reasons why were discussed. The risks of leaving were explained to the patient and include, but are not limited to, worsening of known or currently unknown conditions, permanent disability and from undiagnosed or untreated conditions. The patient has the capacity to make this informed decision and understands my explanation of the current medical problem and risks of leaving. The patient voluntarily accepts these risks and signed an AMA form documenting our conversation. The patient was given the opportunity to ask questions and reconsider. The patient was encouraged to return to the Emergency Department at any time for further care. Past Medical History Reviewed: Historical Data, Nursing Documentation, Vital Signs Vital Signs: Last Vital Signs Temp 98.8 F 06/28/18 15:10 Pulse 111 H 06/28/18 15:10 Resp 20 06/28/18 15:10 BP 154/94 H 06/28/18 15:10 Pulse Ox 99 06/28/18 15:10 - Medical History PMH: HTN, Schizophrenia Denies: Diabetes, Hepatitis, HIV, Chronic Kidney Disease, Seizures, Sexually Transmitted Disease - Surgical History Surgical History: No Surg Hx - Family History Family History: States: No Known Family Hx Denies: Stroke, DC, CAD - Immunization History Hx Tetanus Toxoid Vaccination: No Hx Influenza Vaccination: No Hx Pneumococcal Vaccination: No - Home Medications Home Medications: Ambulatory Orders Medication Instructions Recorded Benztropine [Cogentin] 1 mg PO BID tab 09/25/17 Divalproex [Depakote DR] 500 mg PO BID tcp 09/25/17 hydrOXYzine HCl [Atarax] 25 mg PO Q6 PRN tab 09/25/17 traZODone [Desyrel] 100 mg PO HS tab 09/25/17 risperiDONE [RisperDAL Tab] 4 mg PO QPM #30 tab 02/21/18 Calamine/Zinc Oxide [Calamine 1 applic TOP BID PRN #1 bottle 04/01/18 Lotion] DiphenhydrAMINE [Benadryl] 50 mg PO Q6 PRN #30 cap 04/01/18 Famotidine [Pepcid] 40 mg PO DAILY #5 tablet 04/01/18 Methylprednisolone [Medrol Dose 4 mg PO DAILY #21 mg 04/01/18 Pack (21 tabs)] Calamine/Zinc Oxide [Calamine 1 applic TOP BID PRN #2 bottle 04/07/18 Lotion] Hydrocortisone 1% Cream [Cortizone 1 appl TP BID #60 g 04/12/18 1% Cream] Permethrin 5% [Permethrin 5% Cream] 60 gm EXT ONCE #1 tube 04/15/18 Permethrin 1% Kit [Nix Complete 59 ml TOP ONCE #1 bottle 05/18/18 Lice Elimination Kit 1%] Hydroxyzine HCl 50 mg PO Q6 PRN 5 Days tablet 06/03/18 Ibuprofen [Motrin Tab] 600 mg PO Q6 PRN 7 Days tab 06/03/18 Acetaminophen [Pain Reliever] 500 mg PO Q4 #30 tablet 06/14/18 Acetaminophen [Tylenol Extra 500 mg PO Q4 PRN #30 tablet 06/28/18 Strength] - Allergies Allergies/Adverse Reactions: Allergies Allergy/AdvReac Type Severity Reaction Status Date / Time No Known Allergies Allergy Verified 06/28/18 15:06 Review of Systems ROS Statement: Except As Marked, All Systems Reviewed And Found Negative Neurological: Positive for: Dizziness Physical Exam - Physical Exam Appears: Positive for: Well, Non-toxic, No Acute Distress Head Exam: Positive for: ATRAUMATIC, NORMAL INSPECTION, NORMOCEPHALIC Skin: Positive for: Normal Color, Warm. Negative for: Rash Eye Exam: Positive for: Normal appearance, EOMI, PERRL. Negative for: Nystagmus ENT: Positive for: Normal ENT Inspection Neck: Positive for: Normal, Painless ROM Cardiovascular/Chest: Positive for: Regular Rate, Rhythm. Negative for: Murmur, Tachycardia Respiratory: Positive for: Normal Breath Sounds Gastrointestinal/Abdominal: Positive for: Normal Exam, Soft. Negative for: Tenderness Back: Positive for: Normal Inspection. Negative for: L CVA Tenderness, R CVA Tenderness Neurological/Psych: Positive for: Awake, Alert, Oriented (x3), Gait (steady, unassisted) - ECG ECG: Positive for: Interpreted By Me ECG Rhythm: Positive for: Sinus Rhythm. Negative for: ST/T Changes O2 Sat by Pulse Oximetry: 99 - Progress ED Course And Treament: Labs, CT head w/o contrast, antivert 50mg PO ordered. As per RN pt. was found to have "lice." Pt. was decontaminated but after returning. States he feels much better after shower and dizziness resolved after shower. Disposition - Clinical Impression Clinical Impression: Dizziness, Left against medical advice - Patient ED Disposition Is Patient to be Admitted: No - Disposition Disposition: Against Medical Advice Disposition Time: 18:41 Condition: IMPROVED Instructions: Leaving Against Medical Advice Forms: [facility] (Kyrgyz)
[2018-06-28 19:16] VITALS: BP 135/85; PULSE 93; RESP 18
--- NOTE | 2018-06-29 09:26 | CARD ---
APPROVED REPORT Date of service: 06/29/2018 EKG Measurement Heart [id number] 152P8 [id number] <Conclusion> Normal sinus rhythm Normal ECG
== END 2018-06-28 18:41 | disposition left against medical advice (07) ==
LOC: H.ER 14:23
DX: R42 Dizziness and giddiness (principal); I10 Essential (primary) hypertension; F20.9 Schizophrenia, unspecified

== ENCOUNTER 2018-06-29 00:37 | Emergency (ER) | payer MEDICAID ==
[2018-06-29 01:03] VITALS: BMI 28.8
[2018-06-29] MEDS ORDERED: Permethrin 5% CREAM TOP ONE (01:03)
--- NOTE | 2018-06-29 02:43 | ED PDOC ---
HPI: General Adult Time Seen by Provider: 06/29/18 01:02 Chief Complaint (Nursing): Respiratory Distress Chief Complaint (Provider): Shortness of Breath History Per: Patient History/Exam Limitations: no limitations Onset/Duration Of Symptoms: Persistent Current Symptoms Are (Timing): Still Present Severity: Moderate Recently: Seen In ED Additional Complaint(s): 37 year old male with no significant medical history presents to the ED for evaluation of shortness of breath. He reports shortness of breath only when speaking. Patient is well known to the ED for bed seeking behavior. Otherwise, denies chest pain and other symptoms. This is the patient's third visit to the ED in two days. PMD: none provided Past Medical History Reviewed: Historical Data, Nursing Documentation, Vital Signs Vital Signs: Last Vital Signs Temp 98.7 F 06/29/18 01:03 Pulse 89 06/29/18 01:03 Resp 16 06/29/18 01:59 BP 130/87 06/29/18 01:03 Pulse Ox 98 06/29/18 01:59 - Medical History PMH: HTN, Schizophrenia Denies: Diabetes, Hepatitis, HIV, Chronic Kidney Disease, Seizures, Sexually Transmitted Disease - Surgical History Surgical History: No Surg Hx - Family History Family History: States: Unknown Family Hx Denies: Stroke, [place], CAD - Immunization History Hx Tetanus Toxoid Vaccination: No Hx Influenza Vaccination: No Hx Pneumococcal Vaccination: No - Home Medications Home Medications: Ambulatory Orders Medication Instructions Recorded Benztropine [Cogentin] 1 mg PO BID tab 09/25/17 Divalproex [Depakote DR] 500 mg PO BID tcp 09/25/17 hydrOXYzine HCl [Atarax] 25 mg PO Q6 PRN tab 09/25/17 traZODone [Desyrel] 100 mg PO HS tab 09/25/17 risperiDONE [RisperDAL Tab] 4 mg PO QPM #30 tab 02/21/18 Calamine/Zinc Oxide [Calamine 1 applic TOP BID PRN #1 bottle 04/01/18 Lotion] DiphenhydrAMINE [Benadryl] 50 mg PO Q6 PRN #30 cap 04/01/18 Famotidine [Pepcid] 40 mg PO DAILY #5 tablet 04/01/18 Methylprednisolone [Medrol Dose 4 mg PO DAILY #21 mg 04/01/18 Pack (21 tabs)] Calamine/Zinc Oxide [Calamine 1 applic TOP BID PRN #2 bottle 04/07/18 Lotion] Hydrocortisone 1% Cream [Cortizone 1 appl TP BID #60 g 04/12/18 1% Cream] Permethrin 5% [Permethrin 5% Cream] 60 gm EXT ONCE #1 tube 04/15/18 Permethrin 1% Kit [Nix Complete 59 ml TOP ONCE #1 bottle 05/18/18 Lice Elimination Kit 1%] Hydroxyzine HCl 50 mg PO Q6 PRN 5 Days tablet 06/03/18 Ibuprofen [Motrin Tab] 600 mg PO Q6 PRN 7 Days tab 06/03/18 Acetaminophen [Pain Reliever] 500 mg PO Q4 #30 tablet 06/14/18 Acetaminophen [Tylenol Extra 500 mg PO Q4 PRN #30 tablet 06/28/18 Strength] - Allergies Allergies/Adverse Reactions: Allergies Allergy/AdvReac Type Severity Reaction Status Date / Time No Known Allergies Allergy Verified 06/28/18 15:06 Review of Systems ROS Statement: Except As Marked, All Systems Reviewed And Found Negative Constitutional: Negative for: Fever, Chills Cardiovascular: Negative for: Chest Pain Respiratory: Positive for: Shortness of Breath. Negative for: Cough Physical Exam - Reviewed Nursing Documentation Reviewed: Yes Vital Signs Reviewed: Yes - Physical Exam Appears: Positive for: No Acute Distress Head Exam: Positive for: ATRAUMATIC, NORMAL INSPECTION, NORMOCEPHALIC Skin: Positive for: Normal Color, Warm, Dry Eye Exam: Positive for: EOMI, Normal appearance, PERRL Neck: Positive for: Normal, Painless ROM, Supple Cardiovascular/Chest: Positive for: Regular Rate, Rhythm. Negative for: Murmur Respiratory: Positive for: Normal Breath Sounds. Negative for: Respiratory Distress Extremity: Positive for: Normal ROM (x 4). Negative for: Deformity Neurological/Psych: Positive for: Awake, Alert, Normal Tone, Oriented (x 3). Negative for: Motor/Sensory Deficits - ECG O2 Sat by Pulse Oximetry: 98 (RA) Pulse Ox Interpretation: Normal Medical Decision Making Medical Decision Makin:30 MDM: When offered treatment, patient denies and admits he wants to sleep. He is refusing workup, physical exam and further medications. He admits to coming to the ED to sleep. Patient is stable for discharge with normal vitals. Scribe Attestation: Documented by Jolly Hutchins, acting as a scribe Aditya Prado MD Provider Scribe Attestation: All medical record entries made by the Scribe were at my direction and personally dictated by me. I have reviewed the chart and agree that the record accurately reflects my personal performance of the history, physical exam, medical decision making, and the department course for this patient. I have also personally directed, reviewed, and agree with the discharge instructions and disposition. Disposition - Clinical Impression Clinical Impression: Lice, Body lice - Patient ED Disposition Is Patient to be Admitted: No - Disposition Disposition: Routine/Home Disposition Time: 02:35 Condition: IMPROVED Additional Instructions: Follow up with primary medical doctor. Forms: [employer] (Turkish) Print Language: YI
[2018-06-29 03:01] VITALS: BP 129/82; PULSE 79; RESP 15; TEMP 98.3; O2SAT 99
--- NOTE | 2018-06-29 11:09 | CARD ---
APPROVED REPORT Date of service: 06/28/2018 EKG Measurement Heart [id number] <Conclusion> Normal sinus rhythm Normal ECG
== END 2018-06-29 03:01 | disposition home or self-care (01) ==
LOC: H.ER 00:37
DX: B85.1 Pediculosis due to Pediculus humanus corporis (principal); R06.02 Shortness of breath; F20.9 Schizophrenia, unspecified; I10 Essential (primary) hypertension

== ENCOUNTER 2018-07-01 01:28 | Emergency (ER) | payer MEDICAID ==
[2018-07-01 01:28] VITALS: BMI 28.8
[2018-07-01 01:45] VITALS: BP 134/89; PULSE 79; RESP 16; TEMP 98; O2SAT 98
[2018-07-01] MEDS ORDERED: Permethrin 1% Kit 59 ML BOTTLE TOP ONE (02:28)
--- NOTE | 2018-07-01 02:49 | ED PDOC ---
HPI: Back Time Seen by Provider: 07/01/18 01:46 Chief Complaint (Nursing): Back Pain Chief Complaint (Provider): Back Pain History Per: Patient History/Exam Limitations: no limitations Onset/Duration Of Symptoms: Days (x 2) Current Symptoms Are (Timing): Still Present Quality Of Discomfort: "Pain" Previous Symptoms: None Associated Symptoms: None Additional Complaint(s): 37 year old well known to this ED for bed seeking behavior presents to the ED for evaluation of lower back pain and mild shortness of breath for two days. He denies other complaints. PMD: none provided Past Medical History Reviewed: Historical Data, Nursing Documentation, Vital Signs Vital Signs: Last Vital Signs Temp 98 F 07/01/18 01:43 Pulse 79 07/01/18 01:43 Resp 16 07/01/18 01:43 BP 134/89 07/01/18 01:43 Pulse Ox 98 07/01/18 01:43 - Medical History PMH: HTN, Schizophrenia Denies: Diabetes, Hepatitis, HIV, Chronic Kidney Disease, Seizures, Sexually Transmitted Disease - Surgical History Surgical History: No Surg Hx - Family History Family History: States: Unknown Family Hx Denies: Stroke, [place], CAD - Social History Current smoker - smoking cessation education provided: No Alcohol: None - Immunization History Hx Tetanus Toxoid Vaccination: No Hx Influenza Vaccination: No Hx Pneumococcal Vaccination: No - Home Medications Home Medications: Ambulatory Orders Medication Instructions Recorded Benztropine [Cogentin] 1 mg PO BID tab 09/25/17 Divalproex [Depakote DR] 500 mg PO BID tcp 09/25/17 hydrOXYzine HCl [Atarax] 25 mg PO Q6 PRN tab 09/25/17 traZODone [Desyrel] 100 mg PO HS tab 09/25/17 risperiDONE [RisperDAL Tab] 4 mg PO QPM #30 tab 02/21/18 Calamine/Zinc Oxide [Calamine 1 applic TOP BID PRN #1 bottle 04/01/18 Lotion] DiphenhydrAMINE [Benadryl] 50 mg PO Q6 PRN #30 cap 04/01/18 Famotidine [Pepcid] 40 mg PO DAILY #5 tablet 04/01/18 Methylprednisolone [Medrol Dose 4 mg PO DAILY #21 mg 04/01/18 Pack (21 tabs)] Calamine/Zinc Oxide [Calamine 1 applic TOP BID PRN #2 bottle 04/07/18 Lotion] Hydrocortisone 1% Cream [Cortizone 1 appl TP BID #60 g 04/12/18 1% Cream] Permethrin 5% [Permethrin 5% Cream] 60 gm EXT ONCE #1 tube 04/15/18 Permethrin 1% Kit [Nix Complete 59 ml TOP ONCE #1 bottle 05/18/18 Lice Elimination Kit 1%] Hydroxyzine HCl 50 mg PO Q6 PRN 5 Days tablet 06/03/18 Ibuprofen [Motrin Tab] 600 mg PO Q6 PRN 7 Days tab 06/03/18 Acetaminophen [Pain Reliever] 500 mg PO Q4 #30 tablet 06/14/18 Acetaminophen [Tylenol Extra 500 mg PO Q4 PRN #30 tablet 06/28/18 Strength] Permethrin 5% [Permethrin 5% Cream] 60 gm EXT ONCE #1 tube 07/01/18 - Allergies Allergies/Adverse Reactions: Allergies Allergy/AdvReac Type Severity Reaction Status Date / Time No Known Allergies Allergy Verified 06/28/18 15:06 Review of Systems ROS Statement: Except As Marked, All Systems Reviewed And Found Negative Musculoskeletal: Positive for: Back Pain (lower) Physical Exam - Reviewed Nursing Documentation Reviewed: Yes Vital Signs Reviewed: Yes - Physical Exam Appears: Positive for: No Acute Distress Head Exam: Positive for: ATRAUMATIC, NORMAL INSPECTION, NORMOCEPHALIC Skin: Positive for: Dry, Rash (diffuse scabies rash ) Eye Exam: Positive for: Normal appearance, EOMI, PERRL Neck: Positive for: Normal, Painless ROM, Supple Cardiovascular/Chest: Positive for: Regular Rate, Rhythm. Negative for: Murmur Respiratory: Positive for: Normal Breath Sounds. Negative for: Respiratory Distress Gastrointestinal/Abdominal: Positive for: Normal Exam, Soft. Negative for: Tenderness Back: Positive for: Normal Inspection. Negative for: L CVA Tenderness, R CVA Tenderness Extremity: Positive for: Normal ROM (x 4). Negative for: Deformity Neurological/Psych: Positive for: Awake, Alert, Normal Tone, Oriented (x3). Negative for: Motor/Sensory Deficits - ECG O2 Sat by Pulse Oximetry: 98 (RA) Pulse Ox Interpretation: Normal Medical Decision Making Medical Decision Makin:25 Impression: 37 year old male with diffuse rash Initial Plan: --Permethrin 59 eat TD --Chest x-ray 04:39 Chest x-rays reveals no active disease. Patient is stable for discharge. Diagnoses scabies and URI. Scribe Attestation: Documented by Jolly Hutchins, acting as a scribe Lyle Walker MD Provider Scribe Attestation: All medical record entries made by the Scribe were at my direction and personally dictated by me. I have reviewed the chart and agree that the record accurately reflects my personal performance of the history, physical exam, medical decision making, and the department course for this patient. I have also personally directed, reviewed, and agree with the discharge instructions and disposition Disposition - Clinical Impression Clinical Impression: Scabies, URI (upper respiratory infection) - Patient ED Disposition Is Patient to be Admitted: No - Disposition Disposition: Routine/Home Disposition Time: 04:41 Condition: STABLE Prescriptions: Permethrin 5% [Permethrin 5% Cream] 60 gm EXT ONCE #1 tube Instructions: Scabies, Viral Upper Respiratory Infection, Adult (DC) Forms: [employer] (Setswana)
--- NOTE | 2018-07-01 10:37 | RAD ---
Date of service: 07/01/2018 HISTORY: cough COMPARISON: Chest radiographs 06/13/2018. TECHNIQUE: Chest PA and lateral views FINDINGS: LUNGS: No active pulmonary disease. PLEURA: No significant pleural effusion identified. No pneumothorax apparent. CARDIOVASCULAR: No aortic atherosclerotic calcification present. Normal cardiac size. No pulmonary vascular congestion. OSSEOUS STRUCTURES: No significant abnormalities. VISUALIZED UPPER ABDOMEN: Normal. OTHER FINDINGS: None. IMPRESSION: No interval acute cardiopulmonary disease appreciated.
== END 2018-07-01 04:55 | disposition home or self-care (01) ==
LOC: H.ER 01:28
DX: B86 Scabies (principal); J06.9 Acute upper respiratory infection, unspecified; F20.9 Schizophrenia, unspecified; I10 Essential (primary) hypertension

== ENCOUNTER 2018-07-24 21:25 | Emergency (ER) | payer MEDICAID ==
[2018-07-24 21:25] VITALS: BMI 28.8
[2018-07-24 21:43] VITALS: RESP 16; TEMP 97.9; O2SAT 99
--- NOTE | 2018-07-24 21:53 | ED PDOC ---
HPI: Back Time Seen by Provider: 07/24/18 21:43 Chief Complaint (Nursing): Back Pain Chief Complaint (Provider): Neck pain History Per: Patient History/Exam Limitations: no limitations Onset/Duration Of Symptoms: Mins (60x) Current Symptoms Are (Timing): Still Present Severity: Moderate Additional Complaint(s): 37 year old male with no pertinent past medical history presents to the ED for an evaluation of neck pain that started 60x minutes prior to arrival. Patient states that if he is able to get a shower in the ED, the pain will resolve. Patient denies having trauma to the neck, chest pain, shortness of breath, numbness, tingling, fevers, or chills. Patient denies taking medications for pain prior to arrival. PMD: None provided. Past Medical History Reviewed: Historical Data, Nursing Documentation, Vital Signs Vital Signs: Last Vital Signs Temp 97.9 F 07/24/18 21:41 Pulse 73 07/24/18 21:41 Resp 16 07/24/18 21:41 BP 146/91 H 07/24/18 21:41 Pulse Ox 99 07/24/18 21:41 KISHOR Report Viewed: Yes - Medical History PMH: HTN, Schizophrenia Denies: Diabetes, Hepatitis, HIV, Chronic Kidney Disease, Seizures, Sexually Transmitted Disease - Surgical History Surgical History: No Surg Hx - Family History Family History: States: No Known Family Hx Denies: Stroke, [place], CAD - Social History Current smoker - smoking cessation education provided: No Alcohol: None Drugs: Denies - Immunization History Hx Tetanus Toxoid Vaccination: No Hx Influenza Vaccination: No Hx Pneumococcal Vaccination: No - Home Medications Home Medications: Ambulatory Orders Medication Instructions Recorded Benztropine [Cogentin] 1 mg PO BID tab 09/25/17 Divalproex [Depakote DR] 500 mg PO BID tcp 09/25/17 hydrOXYzine HCl [Atarax] 25 mg PO Q6 PRN tab 09/25/17 traZODone [Desyrel] 100 mg PO HS tab 09/25/17 risperiDONE [RisperDAL Tab] 4 mg PO QPM #30 tab 02/21/18 Calamine/Zinc Oxide [Calamine 1 applic TOP BID PRN #1 bottle 04/01/18 Lotion] DiphenhydrAMINE [Benadryl] 50 mg PO Q6 PRN #30 cap 04/01/18 Famotidine [Pepcid] 40 mg PO DAILY #5 tablet 04/01/18 Methylprednisolone [Medrol Dose 4 mg PO DAILY #21 mg 04/01/18 Pack (21 tabs)] Calamine/Zinc Oxide [Calamine 1 applic TOP BID PRN #2 bottle 04/07/18 Lotion] Hydrocortisone 1% Cream [Cortizone 1 appl TP BID #60 g 04/12/18 1% Cream] Permethrin 5% [Permethrin 5% Cream] 60 gm EXT ONCE #1 tube 04/15/18 Permethrin 1% Kit [Nix Complete 59 ml TOP ONCE #1 bottle 05/18/18 Lice Elimination Kit 1%] Hydroxyzine HCl 50 mg PO Q6 PRN 5 Days tablet 06/03/18 Ibuprofen [Motrin Tab] 600 mg PO Q6 PRN 7 Days tab 06/03/18 Acetaminophen [Pain Reliever] 500 mg PO Q4 #30 tablet 06/14/18 Acetaminophen [Tylenol Extra 500 mg PO Q4 PRN #30 tablet 06/28/18 Strength] Permethrin 5% [Permethrin 5% Cream] 60 gm EXT ONCE #1 tube 07/01/18 - Allergies Allergies/Adverse Reactions: Allergies Allergy/AdvReac Type Severity Reaction Status Date / Time No Known Allergies Allergy Verified 06/28/18 15:06 Review of Systems ROS Statement: Except As Marked, All Systems Reviewed And Found Negative Constitutional: Negative for: Fever, Chills Cardiovascular: Negative for: Chest Pain Respiratory: Negative for: Shortness of Breath Musculoskeletal: Positive for: Neck Pain Neurological: Negative for: Numbness ((-) tingling) Physical Exam - Reviewed Nursing Documentation Reviewed: Yes Vital Signs Reviewed: Yes - Physical Exam Appears: Positive for: Well, Non-toxic, No Acute Distress Head Exam: Positive for: ATRAUMATIC, NORMOCEPHALIC Skin: Positive for: Normal Color, Warm, Dry Neck: Positive for: Normal, Painless ROM, Supple Neurological/Psych: Positive for: Awake, Alert, Oriented (3x), Other (equal management advisor strength bilaterally) - ECG O2 Sat by Pulse Oximetry: 99 (RA) Pulse Ox Interpretation: Normal Medical Decision Making Medical Decision Makin:43 Initial impression: 37 year old male malingering. Scribe Attestation: Documented by Maryan Haley, acting as a scribe for Rodrigo Lance Provider Scribe Attestation: All medical record entries made by the Scribe were at my direction and personally dictated by me. I have reviewed the chart and agree that the record accurately reflects my personal performance of the history, physical exam, medical decision making, and the department course for this patient. I have also personally directed, reviewed, and agree with the discharge instructions and disposition. Disposition - Clinical Impression Clinical Impression: Malingerer - Patient ED Disposition Is Patient to be Admitted: No - Disposition Disposition: Routine/Home Disposition Time: 22:00 Condition: STABLE Instructions: General (DC) Forms: [employer] (Turkish)
[2018-07-24 22:07] VITALS: BP 138/82; PULSE 70
== END 2018-07-24 22:05 | disposition home or self-care (01) ==
LOC: H.ER 21:25
DX: Z76.5 Malingerer [conscious simulation] (principal); F20.9 Schizophrenia, unspecified; I10 Essential (primary) hypertension